=== PATIENT | female | born 1945 | race Caucasian/White ===

== ENCOUNTER → 2024-03-06 13:49 | Outpatient (REF) | payer OTHER, SELFPAY | LOC: HWRCS 13:49 | PROVIDERS: ATTENDING PHYSICIAN Internal Medicine Critical Care Medicine; FAMILY PHYSICIAN Nurse Practitioner Adult Health | DX: R06.02 Shortness of breath (principal) | CPT/HCPCS: 71046; 93306 ==

== ENCOUNTER 2024-05-01 20:26 | Emergency (ER) | payer OTHER, SELFPAY ==
[2024-05-01 20:34] VITALS: BP 146/77
[2024-05-01 21:00] LABS: % Basophils 0.4 % (0-2); % Eosinophils 1.9 % (0-6); % Immature Granulocytes 0.4 % (0-0.5); % Lymphocytes 4.2 % (20.5-51.1); % Monocytes 3.9 % (1.7-9.3); % Neutrophils 89.2 % (42.2-75.2); Absolute Eosinophils 0.2 10^3/uL (0-0.7); Absolute Immature Granulocytes 0.1 10^3/uL (0-0.05); Absolute Lymphocytes 0.5 10^3/uL (1.2-3.4); Absolute Monocytes 0.4 10^3/uL (0.1-0.6); Hematocrit 26.9 % (37.0-47.0); Hemoglobin 7.9 g/dL (12.0-16.0); Mean Corp Hgb Conc. 29.4 g/dL (33.0-37.0); Mean Corpuscular Hgb 20.7 pg (27.0-31.0); Mean Corpuscular Volume 70.4 fL (81.0-99.0); Nucleated Red Blood Cells % 0 %; Platelet Count 293 10^3/uL (130-400); Red Blood Cell Count 3.82 10^6/uL (4.20-5.40); Red Cell Dist. Width 16.9 % (11.5-14.5); White Blood Cell Count 11.3 10^3/uL (4.8-10.8)
[2024-05-01 21:14] LABS: ALT (SGPT) 29 U/L (0-35); AST (SGOT) 35 U/L (14-36); Albumin 4.2 g/dl (3.5-5.0); Alkaline Phosphatase 91 U/L (38-126); Blood Urea Nitrogen 24 mg/dl (7-17); Calcium 10.2 mg/dl (8.4-10.2); Carbon Dioxide 26 mmol/L (22-30); Chloride 99 mmol/L (98-107); Glucose 117 mg/dl (70-99); Potassium 4.2 mmol/L (3.5-5.1); Sodium 134 mmol/L (135-145); Total Bilirubin 0.9 mg/dl (0.2-1.3); Total Protein 6.7 g/dl (6.3-8.2); eGFR 57.31
[2024-05-01 21:17] VITALS: BP 161/50
[2024-05-01 21:18] LABS: COVID-19 Antigen Negative (Negative)
[2024-05-01 21:25] LABS: Troponin I < 0.012 ng/ml
[2024-05-01 22:00] VITALS: BP 162/46
[2024-05-01 22:01] VITALS: BMI 31.6
[2024-05-01] MEDS: DECADRON 10 MG IV (22:17)
[2024-05-01] MEDS: ZOFRAN 4 MG IV (22:17)
[2024-05-01] MEDS: DUONEB 3 ML INH (22:17)
[2024-05-01 23:00] VITALS: BP 165/53
--- NOTE | 2024-05-01 23:01 | ED.GENMED ---
History of Present Illness
General
Chief Complaint: Chest Pain
Source: patient
Exam Limitations: none
Time Seen by Provider: 05/01/24 21:14
Nursing documentation reviewed up to this point in time: agreed with
History of Present Illness
History of Present Illness:
78-year-old female presenting to the emergency department today with concerns of left-sided chest achiness and tightness over the past few days. Today felt somewhat better in the morning went to get an iron transfusion felt increased discomfort
this evening. He claims that she had a low-grade temperature as well. She had upper respiratory symptoms throughout the week earlier this week as well. She has had some mild shortness of breath as well. Denies nausea vomiting diarrhea.
Past History
Past History
ED Past Medical History: Asthma, GERD, HTN, Hypercholesterolemia and Other (Celiac, Vertigo)
ED Past Surgical History: Gynecological (Hysterectomy) and Other (Tooth Surgeries and extraction, Mess implant in the abd, Uretheral sling)
Social History
Tobacco: Non-smoker
Alcohol: None
Drug: None
Personal:
Living: alone
Employment: Retired
Family History
Family History: CAD
Review of Systems
Review of Systems
Allergies reviewed?: Yes
All Other Systems: ROS reviewed and negative except as documented in HPI and ROS
Phy Exam
Physical Exam
Physical Exam:
GENERAL: Alert , in no apparent distress
EYE: pupils equal and reactive
NECK: Supple, no significant adenopathy.
ENT: o/p clr, mmm.
CARDIAC: Regular rate and rhythm .
LUNGS: Diffuse expiratory wheezing otherwise good air movement
ABDOMEN: Soft, without focal tenderness, no r/g, no cvat
NEUROLOGICAL: Alert and oriented, no focal neuro deficits
SKIN: Warm and dry, skin intact.
MUSCULOSKELETAL: No edema, well perfused.
PSYCH: Normal and appropriate interaction.
Scores
Heart Score for Chest Pain Patients
STEMI patient?: No
History: Slightly or Non-Suspicious
ECG: Normal
Age: >/= 65 years
Risk Factors: 1 or 2 Risk Factors
Troponin: </= Normal Limit
Heart Score for Chest Pain Patients: 3
Heart Score Risk: 2.5% MACE over next 6 weeks
Course
Orders/Labs/Results
Orders:
Orders
05/01/24 20:28
ECG [Electrocardiogram (*1)] Urgent
Reason for Study: Chest Pain
EKG- Treatment ONCE
05/01/24 20:40
COVID-19 Antigen Urgent
Source: Nasal Swab
Influenza A+B Rapid Molecular Urgent
[place] Source: Nasal Swab
Specimen Description:
05/01/24 20:43
Complete Blood Count/With Diff Urgent
Comprehensive Metabolic Panel Urgent
Troponin I Urgent
05/01/24 21:15
Chest [CR Chest - 2 Views ] Urgent
Comment:
Reason For Exam: cp
05/01/24 22:04
Dexamethasone Sod Phosphate [Decadron] 10 mg IV NOW STA
Ipratropium/Albuterol Sulfate [Duoneb] 3 ml INH R NOW ONE
Ondansetron Injectable [Zofran] 4 mg IV NOW STA
05/01/24 22:19
Ondansetron Injectable [Zofran] 4 mg .ROUTE .STK-MED ONE
Abnormal Lab Results
05/01/24
20:43
WBC 11.3 H 10^3/uL
(4.8-10.8)
RBC 3.82 L 10^6/uL
(4.20-5.40)
Hgb 7.9 L g/dL
(12.0-16.0)
Hct 26.9 L %
(37.0-47.0)
MCV 70.4 L fL
(81.0-99.0)
MCH 20.7 L pg
(27.0-31.0)
MCHC 29.4 L g/dL
(33.0-37.0)
RDW 16.9 H %
(11.5-14.5)
Abs Immat Gran (auto) 0.1 H 10^3/uL
(0-0.05)
Absolute Neuts (auto) 10.0 H 10^3/uL
(1.4-6.5)
Absolute Lymphs (auto) 0.5 L 10^3/uL
(1.2-3.4)
Neutrophils % 89.2 H %
(42.2-75.2)
Lymphocytes % 4.2 L %
(20.5-51.1)
Sodium 134 L mmol/L
(135-145)
BUN 24 H mg/dl
(7-17)
Glucose 117 H mg/dl
(70-99)
05/01/24 20:43
05/01/24 20:43
Vital Signs
Initial and Last Documented VS:
Initial Vital Signs
Temp Pulse Resp BP Pulse Ox
98.4 F 84 16 146/77 99
05/01/24 20:34 05/01/24 20:34 05/01/24 20:34 05/01/24 20:34 05/01/24 20:34
Last Documented Vital Signs
Temp Pulse Resp BP Pulse Ox
98.4 F 70 14 161/50 94
05/01/24 20:34 05/01/24 22:00 05/01/24 22:00 05/01/24 21:17 05/01/24 22:00
MDM/Problems Addressed
MDM/Problems Addressed:
78-year-old female presenting to the emergency department today with concerns of chest tightness mainly to the left chest has had upper respiratory symptoms throughout the week. On arrival here vital signs are normal afebrile hemoglobin 7.9 which
is patient's baseline currently receiving iron transfusions for this. Slight white count of 11.3. Otherwise labs unremarkable EKG without emergent findings chest x-ray normal troponin negative cardiac etiology seems unlikely with patient's
description patient has had multiple days of symptoms with negative troponin level. On examination patient does have expiratory wheezing diffusely consistent with likely reactive airway syndrome. She does have a history of asthma. She was given
nebulizer treatment as well as steroid. Patient with significant improvement of symptoms after receiving nebulizer and steroid. Patient was ambulated in the room with pulse ox in the mid to high 90s she appeared well she was requesting to go home
at this point as she is feeling better. She was advised for close outpatient follow-up and otherwise symptoms may be consistent with reactive airway was treated with this accordingly with steroid and nebulizer treatments. Otherwise was advised for
close outpatient follow-up return precautions given.
*Critical Care Note
Total Time (30-74mins, 75-104mins- exclusive of procedures): Not Applicable
ED Attending Note
-
Portions of this chart may have been created with voice recognition software.� Occasional wrong word or��sound alike� substitutions may have occurred due to the inherent limitations of voice recognition software.
Discharge Plan
Departure
Patient Disposition: Home (Routine Discharge)
Date of Disposition: 05/01/24
Time of Disposition: 23:20
Patient with high blood pressure during this ER visit?: No
Condition: Good
Covid-19: Not Applicable
Discharge Problem:
Chest pain, Asthma exacerbation
Instructions: Chest Pain DCA Follow Up
Prescriptions:
New
prednisone 20 mg tablet
40 mg PO DAILY 3 Days Qty: 6 0RF
Rx Instructions:
Started this medication in 48 hours
No Action
albuterol sulfate [Ventolin HFA] 90 MCG/PUFF HFA aerosol inhaler
2 puff inhalation PRN PRN (Reason: sob)
cholecalciferol (vitamin D3) 2,000 UNIT tablet
2,000 unit PO DAILY
Advair HFA 1 PUFF HFA aerosol inhaler
2 puff inhalation R BID
ondansetron 4 MG tablet,disintegrating
4 mg PO TIDPRN PRN (Reason: Nausea) Qty: 15 0RF
albuterol sulfate 2.5 MG/3 ML solution for nebulization
2.5 mg inhalation R Q4HPRN PRN (Reason: sob)
atorvastatin 40 MG tablet
40 mg PO QPM Qty: 30 0RF
aspirin 81 MG tablet,chewable
81 mg PO DAILY 0RF
sucralfate [Carafate] 1 gram Tablet
1 g PO PRN PRN (Reason: acid reflux)
cyanocobalamin (vitamin B-12) 1,000 mcg Tablet
1,000 mcg PO DAILY
triamcinolone acetonide [Nasacort] 55 mcg Aerosol,[place]
2 spray INTRANASAL DAILY
metoprolol tartrate [Lopressor] 50 mg Tablet
50 mg PO BID
omeprazole 20 mg Capsule,Delayed Release(Dr/Ec)
20 mg PO DAILY
meclizine 12.5 mg Tablet
12.5 mg PO Q8HPRN PRN (Reason: dizziness) Qty: 30 0RF
losartan 25 mg Tablet
25 mg PO BID Qty: 60 0RF
Referrals:
Mary Kate Dueñas CRNP [Family Provider] -
Activity Restrictions/Additional Instructions:
You came to the emergency department today with concerns of chest discomfort and upper respiratory symptoms. Here you had a wheeze. You were treated with steroid and inhaler that seem to improve symptoms. Please continue the steroid over the next
4 days. Otherwise your cardiac workup was reassuring. Please follow closely with cardiology otherwise. Return for any worsening or progressive symptoms
Interventions
Interventions:
*Risk Screen - Suicide Last Done: 05/01/24 20:34
*General Assessment Last Done: 05/01/24 20:34
*Neglect/Abuse Screening Last Done: 05/01/24 20:34
ED- Fall Risk Assessment Last Done: 05/01/24 22:01
*ED COVID-19 Vaccine History Last Done: 05/01/24 20:34
ED- Cardiac Assessment Last Done: 05/01/24 22:02
Discharge Date and Time
Print Language: FIJIAN
[2024-05-01] MEDS: TYLENOL 1000 MG PO (23:27)
== END 2024-05-01 23:36 | disposition home or self-care (01) ==
LOC: EMR 20:26
PROVIDERS: EMERGENCY PHYSICIAN Student in an Organized Health Care Education/Training Program; FAMILY PHYSICIAN Nurse Practitioner Adult Health
DX: J45.901 Unspecified asthma with (acute) exacerbation (principal); R07.89 Other chest pain; E78.00 Pure hypercholesterolemia, unspecified; I10 Essential (primary) hypertension; K21.9 Gastro-esophageal reflux disease without esophagitis
CPT/HCPCS: 99285; 96374; 96375; 94640; 71046; 80053; 84484; 85025; 87502; 87811; 93005

== ENCOUNTER 2025-01-02 23:49 | Inpatient (IN) | payer OTHER, SELFPAY ==
[2025-01-02] VITALS (11 sets, daily range): BP systolic 189–244; BP diastolic 64–106
[2025-01-02 21:35] LABS: Hematocrit 39.2 % (37.0-47.0); Hemoglobin 13.6 g/dL (12.0-16.0); Mean Corp Hgb Conc. 34.7 g/dL (33.0-37.0); Mean Corpuscular Volume 89.3 fL (81.0-99.0); Nucleated Red Blood Cells % 0 %; Platelet Count 300 10^3/uL (130-400); Red Cell Dist. Width 12.8 % (11.5-14.5)
[2025-01-02 21:50] LABS: ALT (SGPT) 25 U/L (0-35); AST (SGOT) 27 U/L (14-36); Albumin 4.1 g/dl (3.5-5.0); Alkaline Phosphatase 88 U/L (38-126); Blood Urea Nitrogen 17 mg/dl (7-17); Calcium 9.9 mg/dl (8.4-10.2); Carbon Dioxide 29 mmol/L (22-30); Chloride 106 mmol/L (98-107); Glucose 104 mg/dl (70-99); Potassium 4.4 mmol/L (3.5-5.1); Sodium 140 mmol/L (135-145); Total Protein 6.8 g/dl (6.3-8.2); eGFR 50.80
[2025-01-02 21:55] LABS: Troponin I < 0.012 ng/ml
[2025-01-02] MEDS: BENADRYL 25 MG IV (22:08)
[2025-01-02] MEDS: COMPAZINE 10 MG IV (22:08)
[2025-01-02] MEDS: LOPRESSOR 50 MG PO (22:08)
--- NOTE | 2025-01-02 22:27 | ED.CVA ---
History of Present Illness
General
Chief Complaint: Headache
Source: patient and family (son)
Exam Limitations: none
Time Seen by Provider: 01/02/25 21:15
Nursing documentation reviewed up to this point in time: agreed with
Onset of Stroke Symptoms
Onset of symptoms known: No
Time pt last seen normal is known: No
History of Present Illness
History of Present Illness:
The patient is an 79-year-old female with a past medical history of high blood pressure complains of gradual onset of left-sided headache that started today. Patient describes it as fairly severe and pounding. Patient reports that she has had a
history of atypical migraines with visual disturbances but has never actually had pain in her head before. Patient reports that earlier she had visual distortions of ' broken glass' in both of her eyes, which is her typical migraine aura. This
visual disturbance is now gone completely but she still has the pain along the left side of her head. Patient has associated nausea and vomiting. She denies fever and rash. She denies sore throat. She denies chest pain or shortness of breath.
Patient reports that she does take her blood pressure medication
Past History
Past History
ED Past Medical History: Asthma, GERD, HTN, Hypercholesterolemia and Other (Celiac, Vertigo)
ED Past Surgical History: Gynecological (Hysterectomy) and Other (Tooth Surgeries and extraction, Mess implant in the abd, Uretheral sling)
Social History
Tobacco: Non-smoker
Alcohol: None
Drug: None
Personal:
Living: alone
Employment: Retired
Family History
Family History: CAD
Review of Systems
Review of Systems
Allergies reviewed?: Yes
All Other Systems: ROS reviewed and negative except as documented in HPI and ROS
Constitutional: Reports no symptoms
EENT: Reports other (Visual disturbances)
Respiratory: Reports no symptoms
Cardiac: Reports no symptoms
ABD/GI: Reports nausea and vomiting
: Reports no symptoms
Musculoskeletal: Reports no symptoms
Skin: Reports no symptoms
Neurological: Reports headache
Endocrine: Reports no symptoms
Hematologic/Lymphatic: Reports no symptoms
Psychiatric: Reports no symptoms
Phy Exam
Physical Exam
Physical Exam:
Physical Exam
General: no apparent distress, not acutely ill
Neck: supple. no meningeal signs. normal psoterior pharynx
Heart: s1/s2 regular rate and rhythm, no murmur. equal radial pulses.
Lungs: no acute respiratory distress. clear bilaterally
Abdomen: normal bowel sounds. not tender. no CVAT
Neuro: alert and orientedx3. no focal neurological deficits. Normal finger-nose. Extraocular muscles intact. 5 out of 5 strength in all extremities without drift. Patient having difficulty with memory she states is new
for her.
Skin: no rash
Psychiatric: well kept. interactive and cooperative
Extremities: no edema. no calf tenderness. negative homans. good distal pulses
Course
Orders/Labs/Results
Orders:
Orders
01/02/25 20:45
Electrocardiogram (*1) Urgent
Reason for Study: Fatigue / Weakness
EKG- Treatment ONCE
01/02/25 21:14
CT Head W/o Iv Contrast Urgent
Comment:
Reason For Exam: high BP, headache
01/02/25 21:21
Complete Blood Count/With Diff Urgent
Comprehensive Metabolic Panel Urgent
Erythrocyte Sed Rate Urgent
Comment: ADD ON
Troponin I Urgent
01/02/25 21:59
Diphenhydramine [Benadryl] 25 mg IV NOW STA
Metoprolol [Lopressor] 50 mg PO NOW STA
Prochlorperazine [Compazine] 10 mg IV NOW STA
01/02/25 22:00
Add On- LAB Urgent
Tests Added?: ESR
01/02/25 23:11
Ketorolac [Toradol] 15 mg IV NOW STA
01/02/25 23:20
Labetalol HCl [Trandate] 10 mg IV NOW STA
01/02/25 23:30
Nicardipine 40 mg/200 ml [Cardene] 40 mg in 200 ml IV PER PROTOCOL
Initial dose in mg/hr, then titrate:: 5
Titrate to keep:: SBP 120 - 140 mmHg
Titrate by mg/hr:: 2.5 mg/hr
Frequency of titrations (minutes):: 5-15 minutes
Maximum dose in mg/hr:: 15
Begin to taper infusion when:: Remained at goal for 2hrs
Taper by mg/hr:: 2.5 mg/hr
Frequency of taper (minutes) if patient maintains goal:: every 15-30 minutes
Taper to off?: Yes
If infusion off & no longer maintaining goal:: Contact Provider
01/02/25 23:39
Admit/Transfer Patient As Directed
Co-Sign Provider:
Level of Care: Inpatient admission
Assign to:: IMU- Intermediate Care
Physician / Group: abdoulaye daniel
Diagnosis: HTN emergency
Reason for Hospitalization: HTN emergency
Expected length of stay greater than two midnights?: Yes
ELOS- Estimated Length of Stay in days: 3
I certify the patient meets the requirements for IP care: Yes
PRN Pain Medication Management As Directed
May give lesser potent ordered pain med per pt: Yes
preference::
Protocol:: Medication orders for pain may be administered in a
manner that supports deferring to patient preference
when the pt is:
- Requesting an ordered lesser potent pain medication.
Least to most potent pain medications are defined
as: acetaminophen < NSAID < tramadol < opioids
(morphine, oxycodone, hydromorphone).
- Requesting a lesser dose of the same medication IF
ORDERED.
- Requesting a less intrusive route of administration
if both routes are prescribed by the provider (PO <
IV).
01/02/25 23:40
Code Status As Directed
Resuscitation Status: Full Code
01/02/25 23:46
Losartan [Cozaar] 25 mg PO NOW STA
01/03/25 01:31
Acetaminophen [Tylenol] 650 mg PO Q4HPRN PRN
Bisacodyl [Dulcolax] 10 mg RECTAL [id number] PRN
Docusate W/Senna [Senokot-S] 1 tablet PO BIDPRN PRN
Labetalol HCl [Trandate] 10 mg IV Q6HPRN PRN
Polyethylene Glycol Powder [Miralax] 17 grams PO DAILYPRN PRN
Prochlorperazine [Compazine] 10 mg IV Q6HPRN PRN
01/03/25 01:31
Consult Notification Routine
Specialty to Notify: Nephrology
Date consulting provider notified: 01/03/25
Time consulting provider notified: 08:20
Notified:: Provider
Consult Notification Routine
Specialty to Notify: Neurology
Date consulting provider notified: 01/03/25
Time consulting provider notified: 08:20
Notified:: Provider
NEPHROLOGY CONSULT Routine
Consulting Provider: Moe Mantilla
Was physician already notified: No
Reason for consult: HTN emergency
NEUROLOGY CONSULT Routine
Consulting Provider: Glenny Salcedo
Was physician already notified: No
Reason for consult: CARMONA
Activity As Directed
Activity Level: As Tolerated
Pneumatic Compression Sleeves As Directed
Type: Knee high
Vital Signs As Directed
Frequency: Per unit guidelines
DX Deep Vein Thrombosis Video Routine
01/03/25 Breakfast
Cholesterol Lowering
At Your Request: Full Participation
Does patient need a safe tray?: No
Cholesterol Lowering: Sodium, 2 Gram
01/03/25 06:05
Basic Metabolic Panel IN AM
Cardiovascular Evaluation IN AM
Complete Blood Count/No Diff IN AM
01/03/25 08:00
Aspirin Chewable [Low Strength Aspirin] 81 mg PO DAILY
Losartan [Cozaar] 25 mg PO DAILY
Metoprolol [Lopressor] 75 mg PO BID
01/03/25 18:00
Atorvastatin [Lipitor] 40 mg PO QPM
Abnormal Lab Results
01/02/25
21:21
MPV 10.9 H fL
(7.4-10.4)
Absolute Neuts (auto) 8.0 H 10^3/uL
(1.4-6.5)
Absolute Monos (auto) 0.7 H 10^3/uL
(0.1-0.6)
Lymphocytes % 14.7 L %
(20.5-51.1)
Creatinine 1.1 H mg/dL
(0.6-1.0)
Glucose 104 H mg/dl
(70-99)
01/02/25 21:21
01/02/25 21:21
Vital Signs
Initial and Last Documented VS:
Initial Vital Signs
Temp Pulse Resp BP Pulse Ox
98.7 F 80 20 229/106 97
01/02/25 20:39 01/02/25 20:39 01/02/25 20:39 01/02/25 20:39 01/02/25 20:39
Last Documented Vital Signs
Temp Pulse Resp BP Pulse Ox
97.6 F 69 17 114/56 96
01/05/25 12:00 01/05/25 14:13 01/05/25 09:00 01/05/25 14:13 01/05/25 11:50
MDM/Problems Addressed
Differential Diagnosis Includes:
Hypertensive urgency, hypertensive emergency, acute migraine headache
MDM/Problems Addressed:
Patient presents with acute headache and memory problems
Acute Exacerbation and/or Progression of Chronic Illness:
Patient's blood pressure is acutely elevated.
Acute Exacerbation and/or Progression of Chronic Illness: HTN
*Radiology
Radiology exam reviewed: radiology read reviewed
*Pulse Oximetry
SaO2: 98
Oxygen Mode of Delivery: Room air
Patient hypoxic: no
*EKG
Interpreted by ED Provider?: Yes
Interpretation: normal
Comparison EKG: no comparison EKG present
Rate: normal
Rhythm: sinus
[place]: normal axis
Interval: normal interval
QRS Pattern: right bundle branch block
Ischemia: no ischemia
*Nonprofit Manager Interpretation
Rate: normal
Interpretation: normal
Rhythm: sinus
*Critical Care Note
Total Time (30-74mins, 75-104mins- exclusive of procedures): Not Applicable
Data Reviewed
Review of Other/Old Records Reveals: Discharge Summary (Patient admitted for hypertensive emergency in 2021)
Source: patient
Patient Management
Discussion with other providers: Hospitalist
Update Note
Update Note:
Patient given Compazine and Benadryl for headache with little improvement of headache. However, patient still appears nontoxic and there is no meningitis. Patient given her oral metoprolol and still very hypertensive.
ED Attending Note
-
Portions of this chart may have been created with voice recognition software.� Occasional wrong word or��sound alike� substitutions may have occurred due to the inherent limitations of voice recognition software.
Discharge Plan
Departure
Patient Disposition: Admit
Date of Disposition: 01/02/25
Time of Disposition: 23:12
Admit to: Telemetry
Presentation/result/management discussed w/ accepting MD/DO: Hospitalist
Condition: Good
Covid-19: Not Applicable
Discharge Problem:
Hypertension, uncontrolled, Acute headache
Interventions
Interventions:
*Risk Screen - Suicide Last Done: 01/02/25 21:37
*General Assessment Last Done: 01/02/25 20:42
*Neglect/Abuse Screening Last Done: 01/02/25 21:37
*ED COVID-19 Vaccine History Last Done: 01/03/25 01:34
*ED Influenza Vaccine History Last Done: 01/02/25 20:42
*Nursing Disposition Last Done: 01/03/25 01:07
ED- Neurological Assessment Last Done: 01/02/25 21:33
Discharge Date and Time
Discharge Date/Time: 01/03/25 01:35
--- NOTE | 2025-01-02 23:15 | HPS.HSE ---
Family Physician
-
Family Physician: Mary Kate Dueñas
Chief Complaint
-
headache, confusion
History of Present Illness
79-year-old with past medical history for asthma, GERD, hypertension, hyperlipidemia, anemia, vertigo presented to us with left sided headache. she was not able to remember her kids name as she was looking through her phone to call them. she as
nauseous. she was confused. denied any focal weakness. she had an episode of diarrhea. denied fever, chills, cough, congestion,chest pain, sob. denied abdominal pain, denied dysuria or hematuria.
Upon arrival she was hypertensive. Systolic in 200s. Patient received Benadryl, Toradol, labetalol, metoprolol in ER. Admitting for further management
Medical History
Past Medical History
Past Medical History: Reports Other
Additional Past Medical History:
Asthma, GERD, hypertension, hypercholesteremia, CVA, vertigo, depression, basal cell carcinoma, tooth abscess, celiac disease headaches chronic sinusitis, hiatal hernia, anemia, ocular migraines, peripheral neuropathy, herpes zoster
Past Surgical History: Reports Other
Additional Past Surgical History:
Hysterectomy, tooth extraction, urethral sling, left knee repair, umbilical hernia repair meniscus repair abdominal mesh repair
Social History
Tobacco: Non-smoker
Alcohol: None
Drug: None
Personal: Single
Living: Alone
Family History
Family History: Not pertinent
Allergies / Home Medications
Allergies reflects when Allergies were last updated in [facility].
Home Medications with original date entered in [facility]
Allergy/Medication List:
Allergies
Allergy/AdvReac Type Severity Reaction Status Date / Time
amlodipine Allergy pounding Verified 01/02/25 20:44
heart
ampicillin Allergy Rash Verified 01/02/25 20:44
cat dander Allergy sneezing,coughing, Verified 01/02/25 20:44
asthma
codeine Allergy Vomiting Verified 01/02/25 20:44
diltiazem Allergy pt reports Verified 01/02/25 20:44
pounding
heart
latex Allergy Swelling Verified 01/02/25 20:44
pollen extracts Allergy SOB, Verified 01/02/25 20:44
coughing,
sneezing,
asthma
Home Medications
albuterol sulfate 90 mcg/actuation aerosol inhaler (Ventolin HFA) 2 puff inhalation PRN PRN sob 06/01/14
cholecalciferol (vitamin D3) 50 mcg (2,000 unit) tablet 2,000 unit PO DAILY Supplement 10/01/19
fluticasone propionate 230 mcg-salmeterol 21 mcg/actuation HFA inhaler (Advair HFA) 2 puff inhalation R BID Lung/breathing issues 10/02/19
ondansetron 4 mg disintegrating tablet 4 mg PO TIDPRN PRN Nausea #15 tabs 10/06/19
albuterol sulfate 2.5 mg/3 mL (0.083 %) solution for nebulization 2.5 mg inhalation R Q4HPRN PRN sob 07/10/20
aspirin 81 mg chewable tablet 81 mg PO DAILY 07/12/20
atorvastatin 40 mg tablet 40 mg PO QPM #30 tabs 07/12/20
cyanocobalamin (vitamin B-12) 1,000 mcg tablet 1,000 mcg PO DAILY 10/13/21
metoprolol tartrate 50 mg tablet (Lopressor) 50 mg PO BID 10/13/21
omeprazole 20 mg capsule,delayed release 20 mg PO DAILY 10/13/21
sucralfate 1 gram tablet (Carafate) 1 g PO PRN PRN acid reflux 10/13/21
triamcinolone acetonide 55 mcg nasal spray aerosol (Nasacort) 2 spray intranasal DAILY 10/13/21
losartan 25 mg tablet 25 mg PO BID #60 tabs 10/15/21
meclizine 12.5 mg tablet 12.5 mg PO Q8HPRN PRN dizziness #30 tabs 10/15/21
prednisone 20 mg tablet 40 mg (2 x 20 mg) PO DAILY 3 days #6 tabs 05/01/24
Review of Systems
-
Constitutional: Reports No Symptoms
EENT: Reports No Symptoms
Respiratory: Reports No Symptoms
Cardiac: Reports No Symptoms
Abdomen/GI: Reports No Symptoms
: Reports No Symptoms
Musculoskeletal: Reports No Symptoms
Skin: Reports No Symptoms
Neurological: Reports Headache
Endocrine: Reports No Symptoms
Hematologic/Lymphatic: Reports No Symptoms
Psych: Reports No Symptoms
Physical Exam
Vital Signs
Vital Signs
Temp Pulse Resp BP Pulse Ox
98.7 F 73 17 214/90 94
01/02/25 20:39 01/02/25 22:30 01/02/25 22:30 01/02/25 22:30 01/02/25 22:30
Physical Exam
General: Well Developed, Well Nourished and No Apparent Distress
HEENT: NormoCephalic, Moist mucous membranes and Atraumatic
Respiratory: Clear
Cardiac: S1/S2 and Regular Rhythm; No Murmur or Rub
GI: Soft, Non Tender, Non Distended and Normal Bowel Sounds; No Organomegaly
Rectal: Deferred by Provider
Musculoskeletal: No Clubbing, No Cyanosis and No Edema
Skin: No Rash
Neuro: AO x 3 and Nonfocal/grossly intact
Psych: Calm
Laboratory Results
-
01/02/25 21:21
01/02/25 21:21
Laboratory Results
Total Bilirubin 0.4 mg/dl (0.2-1.3) 01/02/25 21:21
AST 27 U/L (14-36) 01/02/25 21:21
ALT 25 U/L (0-35) 01/02/25 21:21
Alkaline Phosphatase 88 U/L (38-126) 01/02/25 21:21
Troponin I < 0.012 ng/ml 01/02/25 21:21
Data Reviewed
-
CT Scan: Report Reviewed by me
Lab Data: Labs Reviewed by me
Impression/Plan
-
# Hypertension urgency/headache
- Systolic BP in 200, diastolic in 90s
- Head CT with no acute intracranial abnormality
- Nephrology consulted
- Metoprolol continue
- IV labetalol as needed
- Compazine as needed
- Nephrology consulted
-neurology consulted
-Tylenol prn for apin
-losartan added
# Acute kidney injury
- Creatinine 1.1
- Continue to monitor
#Hyperlipidemia
-Continue Lipitor
#GERD
-Continue Protonix
# DVT prophylax
- Heparin subcu
# CODE STATUS
- Full code
[2025-01-02] MEDS: TRANDATE 10 MG IV (23:34)
[2025-01-02] MEDS: TORADOL 15 MG IV (23:35)
--- NOTE | 2025-01-02 23:35 | W.PN.UPDATE ---
Update Note
Progress Note Update
This note serves as an addendum to the H&P by insurance service representative CARLOS�
Nette DAVID�
HPI
76F HX left occipital stroke in June 2020, chronic headaches with migrainous quality and occasional visual aura, hypertension, hyperlipidemia, asthma, previous BPP
- gradual onset of left-sided headache that started today.
- fairly severe and pounding.
- HX atypical migraines with visual disturbances but has never actually had pain in her head before.
- reports that earlier she had visual distortions of ' broken glass' in both of her eyes, which is her typical migraine aura.
- visual disturbance is now gone completely but she still has the pain along the left side of her head. Patient has associated nausea and vomiting. She denies fever and rash. She denies sore throat.
ROS
denies chest pain or shortness of breath. Patient reports that she does take her blood pressure medication
Relevant VS
Temp Pulse Resp BP Pulse Ox
98.7 F 65 17 219/71 94
01/02/25 20:39 01/02/25 23:34 01/02/25 22:30 01/02/25 23:34 01/02/25 22:30
PE
Gen : no distress
HEENT: Atraumatic normocephalic eyes are anicteric with no obvious abnormality oropharynx is clear
Derm: Skin is warm and dry no rash no suspicious lesions
CV: RRR
Pulmonary: Clear to auscultation bilaterally breathing is unlabored
Abdomen: Soft nontender no guarding rigidity
Extremity: No edema
Relevant Data
07/10/20 10/13/21 10/13/21
19:43 15:11 17:10
Creatinine 0.9 1.1 H
Glomerular Filtr Rate > 60.0 48.2
Troponin I < 0.012
Last hospitalist admission: 10/13/2021 - 10/15/2021
FINAL DIAGNOSES:
1. Hypertensive emergency.
2. Vertigo due to hypertensive emergency.
ASSESSMENT & PLAN
Hypertensive Emergency - Previous secondary hypertensive workup had been done and was negative
Mild JUAN
Multi drug intolerance of long-standing duration which has included hydralazine, amlodipine, diltiazem, lisinopril)
HX Neurologic impairment/dizziness potentially secondary to hypertensive emergency
CARMONA Migraine or due to HTN emerghency
Hyperlipidemia
GERD
Allergic to Codine
-Per Prior Renal consult from last admission
-Initiate losartan 25 mg daily -If losartan cannot adequately controlled blood pressure, to add low-dose hydrochlorothiazide
-Beta duke titration will be limited by bradycardia
- Tylenol PRN for CARMONA
- Trend BMP
- Renal consult
DVT Px: SCD
Full code
IMU
[2025-01-03] VITALS (50 sets, daily range): BP systolic 113–212; BP diastolic 53–111; BMI 28.6
[2025-01-03] MEDS: COZAAR 25 MG PO ×2 (00:12→08:15)
[2025-01-03] MEDS: TYLENOL 650 MG PO ×4 (01:54→18:50)
[2025-01-03] MEDS: TRANDATE 10 MG IV ×2 (01:55→10:02)
[2025-01-03] MEDS: COMPAZINE 10 MG IV ×2 (01:56→08:14)
--- NOTE | 2025-01-03 02:00 | PTCARENOTE ---
Received pt. from ED. Pt. awake, alert, oriented. Denies pain/discomfort. Afebrile. Heart rhythm sinus. Hypertensive. PRN anti-hypertensive given, see MAR. Currently on room air. Lungs sound clear. PO diet ordered. Pt. currently experiencing nausea.
PRN compazine given, see MAY. Pt. voiding without issue. Skin as documented. Discussed plan of care. Pt. is stable at this time.
--- NOTE | 2025-01-03 05:00 | PTCARENOTE ---
Pt. blood pressure improved with PRN medication. SBP currently 140s to 160s. Will draw AM labs. Pt. is stable at this time.
[2025-01-03 06:18] LABS: Hematocrit 35.2 % (37.0-47.0); Hemoglobin 12.0 g/dL (12.0-16.0); Mean Corp Hgb Conc. 34.1 g/dL (33.0-37.0); Mean Corpuscular Volume 87.8 fL (81.0-99.0); Platelet Count 277 10^3/uL (130-400); Red Cell Dist. Width 12.7 % (11.5-14.5)
[2025-01-03 06:36] LABS: Blood Urea Nitrogen 19 mg/dl (7-17); Calcium 9.5 mg/dl (8.4-10.2); Carbon Dioxide 24 mmol/L (22-30); Chloride 106 mmol/L (98-107); Estimated Creatinine Clearance 50 ml/min; Glucose 112 mg/dl (70-99); HDL Cholesterol 42 mg/dl; LDL Cholesterol, Calculated 68 mg/dl; Potassium 4.6 mmol/L (3.5-5.1); Sodium 135 mmol/L (135-145); Very Low Density Lipoprotein 40 mg/dl (0-30); eGFR > 60.00
--- NOTE | 2025-01-03 07:21 | CON.NEURO ---
Consultation
Order
Date of Consultation: 01/03/25
Requesting Provider: Nette Ramos CRNP
Reason for Consult: Headache
Neurology Consultation Note.
HPI: This is an 79-year-old woman who presented to [facility] on 01/02/2025 with headache.
According to the patient she developed gradual onset progressive severe left-sided headache that began yesterday afternoon. Her symptoms were preceded by visual obscurations and form of 'cracked glass type of vision' where objects would disappear
when she looked directly at them but could be seen peripherally. However, unlike her usual 'ocular migraines 'which are painless, this episode was accompanied by severe sharp pain on the left side of her head and face that was so intense she could
not touch that side of her face. There was associated photophobia, some nasal congestion and nausea. Ms. Huff reports having off-and-on L temporal pain in the past but never as severe as yesterday's episode. She took aspirin for the pain without
relief, which prompted her to seek medical attention. Currently, her headache persists but has improved significantly from yesterday, rating it as a 3/10 in severity. sincere baby aspirin and reports having peripheral neuropathy of undetermined cause,
noting she does not have diabetes.
ER VS: 229/106-244/87, 80, afebrile
EKG:NSR, QTcB Int : 416 ms
PDMP: none
Labs: Glucose�112, normal WBCs, creatinine�1.1, LDL�68
CT head wo contrast�no acute abnormalities, moderate atrophy
PMH: Ocular migraine, L [employer]ICE MAIL [employer] stroke(2020), HTN, DLP, GERD, chronic sinusitis, migraine with aura, polyneuropathy, history of hyper zoster, BPPV, vitamin D, B12 deficiency
PSH: umbilical hernia repair, hysterectomy, left knee arthroscopy
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
FH: Noncontributory to current presentation
All: Hydralazine, amlodipine, ampicillin, codeine, diltiazem, NARESH inhibitors
ROS:HEENT: Positive for voice changes. Negative for rhinorrhea currently.
Gastrointestinal: Positive for nausea with headache episode.
Musculoskeletal: Positive for chronic back pain and neck pain. Negative for sciatica symptoms.
Neurological: Positive for tingling and numbness in feet, occasional visual disturbances with crackling vision.
General: Well developed. In no acute distress.
Cardio: Regular rate and rhythm without murmur. Extremities are without cyanosis or edema.
Neuro:
Mental Status: Alert, oriented to person, place, and date. Normal attention and recall. Good fund of knowledge. Follows complex requests across the midline. Comprehension, naming, and repetition intact. Immediate and delayed recall 3/3.
Cranial Nerves: Pupils are equally round and reactive to light. EOMs full. Visual champagne full to confrontation. No ptosis. No nystagmus. V1-V3 intact to light touch and pinprick bilaterally, symmetric. Face symmetric. Normal hearing AU. The
palate elevated well. SCMs and traps 5/5. Tongue midline. No dysarthria. Moderate dysphonia (after RSV several months ago)
Motor: Normal bulk and tone. No pronator or arm drift. Strength 5/5 throughout. No clonus.
Reflexes: Negative grasp bilaterally
Sensory: Absent vibration at the toes and ankles
Coordination: No dysmetria or tremor.
Gait: deferred
Bilateral hammertoes
Assessment and Plan:
I. Hypertensive emergency
II. History of left OFFICE MAIL [employer] stroke (2020) of unclear etiology
III. Migraine with aura
IV. Distal symmetric large fiber polyneuropathy
-Continue Telemetry monitoring
-Please check ESR, CRP, TFTs, magnesium
-Brain MRI wo kathryn
-IV Toradol 30 mg, Reglan 10 mg, Benadryl 25 mg Q8h PRN for moderate to severe headache.
-Continue ASA 81 mg QD
-PT.
-DVT prophylaxis.
I personally reviewed all radiology and labs along with past medical records pertinent to current medical problems. Total time spent in patient care is 60 minutes.
Thank you for allowing us to participate in the care of this patient. We will continue to follow. Please do not hesitate to contact us with any questions or concerns.
Subjective/Objective
Subjective Data
Date of Service: January 03, 2025
Objective Data
Vital Signs
Temp Pulse Resp BP Pulse Ox
37.1 C 59 17 147/58 93
01/03/25 07:03 01/03/25 06:30 01/03/25 06:30 01/03/25 06:00 01/03/25 06:30
Lab Results
01/03/25 06:05
01/03/25 06:05
Sodium 135 mmol/L (135-145) 01/03/25 06:05
Potassium 4.6 mmol/L (3.5-5.1) 01/03/25 06:05
BUN 19 mg/dl (7-17) H 01/03/25 06:05
Glucose 112 mg/dl (70-99) H 01/03/25 06:05
Calcium 9.5 mg/dl (8.4-10.2) 01/03/25 06:05
LDL Cholesterol, Calc 68 mg/dl 01/03/25 06:05
Patient Allergies
amlodipine Allergy (Verified 01/02/25 20:44)
pounding heart
ampicillin Allergy (Verified 01/02/25 20:44)
Rash
cat dander Allergy (Verified 01/02/25 20:44)
sneezing,coughing, asthma
codeine Allergy (Verified 01/02/25 20:44)
Vomiting
diltiazem Allergy (Verified 01/02/25 20:44)
pt reports pounding heart
latex Allergy (Verified 01/02/25 20:44)
Swelling
pollen extracts Allergy (Verified 01/02/25 20:44)
SOB, coughing, sneezing, asthma
NARESH Inhibitors Adverse Reaction (Intermediate, Verified 01/03/25 03:39)
cough
hydralazine Adverse Reaction (Intermediate, Verified 01/03/25 03:39)
per records-pounding heart,CARMONA, stuffy head
Medications
-
Active Medications
Generic Name Dose Route Start Last Admin
Trade Name Freq PRN Reason Stop Dose Admin
Acetaminophen 650 mg 01/03/25 01:31 01/03/25 01:54
Acetaminophen 325 Mg Tablet PO 01/31/25 01:30 650 mg
Q4HPRN PRN Administration
mild pain/CARMONA/temp> 100.4F
Aspirin 81 mg 01/03/25 08:00
Aspirin 81 Mg Chewable Tablet PO 01/31/25 07:59
DAILY KAILA
Atorvastatin Calcium 40 mg 01/03/25 18:00
Atorvastatin (Lipitor) 40 Mg Tablet PO 01/31/25 17:59
QPM KAILA
Bisacodyl 10 mg 01/03/25 01:31
Bisacodyl 10 Mg Rectal Suppository RECTAL 01/31/25 01:30
[id number] PRN
constipation
Diphenhydramine HCl 25 mg 01/03/25 03:56
Diphenhydramine 50 Mg/Ml 1 Ml Vial IV 01/31/25 03:55
Q4HPRN PRN
headache
Labetalol HCl 10 mg 01/03/25 03:58
Labetalol Hcl 5 Mg/1 Ml (20 Mg/4 Ml) Injection IV 01/31/25 03:56
Q4HPRN PRN
HTN
Losartan Potassium 25 mg 01/03/25 08:00
Losartan 25 Mg Tablet PO 01/31/25 07:59
DAILY KAILA
Metoprolol Tartrate 75 mg 01/03/25 08:00
Metoprolol 50 Mg Regular Release Tablet PO 01/31/25 07:59
BID KAILA
Polyethylene Glycol 17 grams 01/03/25 01:31
Polyethylene Glycol Powder 17 Grams Packet PO 01/31/25 01:30
DAILYPRN PRN
constipation
Prochlorperazine Edisylate 10 mg 01/03/25 01:31 01/03/25 01:56
Prochlorperazine 10 Mg/2 Ml Vial IV 01/31/25 01:30 10 mg
Q6HPRN PRN Administration
n/v
Senna/Docusate Sodium 1 tablet 01/03/25 01:31
Docusate W/Senna (Cristin-Colace) Tablet PO 01/31/25 01:30
BIDPRN PRN
constipation
Sodium Chloride 0 flush 01/03/25 02:00
Sodium Chloride 0.9% (Flush) Syringe IV 01/31/25 01:59
PER PROTOCOL KAILA
Home Medications
�Medication �Instructions �Recorded
albuterol sulfate 90 mcg/actuation 2 puff inhalation PRN PRN sob 06/01/14
aerosol inhaler (Ventolin HFA)
cholecalciferol (vitamin D3) 50 2,000 unit PO DAILY Supplement 10/01/19
mcg (2,000 unit) tablet
fluticasone propionate 230 2 puff inhalation R BID 10/02/19
mcg-salmeterol 21 mcg/actuation Lung/breathing issues
HFA inhaler (Advair HFA)
aspirin 81 mg chewable tablet 81 mg PO DAILY 07/12/20
atorvastatin 40 mg tablet 40 mg PO QPM #30 tabs 07/12/20
cyanocobalamin (vitamin B-12) 1,000 mcg PO DAILY 10/13/21
1,000 mcg tablet
metoprolol tartrate 50 mg tablet 75 mg PO BID 10/13/21
(Lopressor)
Vital Signs and Labs
-
Vital Signs and Labs:
Vital Signs
Temp Pulse Resp BP Pulse Ox
36.7 C 54 17 170/68 94
10/12/25 11:04 01/03/25 10:02 01/03/25 06:30 01/03/25 10:02 01/03/25 08:32
Lab Results
01/03/25 06:05
01/03/25 06:05
Sodium 135 mmol/L (135-145) 01/03/25 06:05
Potassium 4.6 mmol/L (3.5-5.1) 01/03/25 06:05
BUN 19 mg/dl (7-17) H 01/03/25 06:05
Glucose 112 mg/dl (70-99) H 01/03/25 06:05
Calcium 9.5 mg/dl (8.4-10.2) 01/03/25 06:05
LDL Cholesterol, Calc 68 mg/dl 01/03/25 06:05
Medications
-
Medications:
Generic Name Dose Route Start Last Admin
Trade Name Freq PRN Reason Stop Dose Admin
Acetaminophen 650 mg 01/03/25 01:31 01/03/25 08:25
Acetaminophen 325 Mg Tablet PO 01/31/25 01:30 650 mg
Q4HPRN PRN Administration
mild pain/CARMONA/temp> 100.4F
Aspirin 81 mg 01/03/25 08:00 01/03/25 08:14
Aspirin 81 Mg Chewable Tablet PO 01/31/25 07:59 81 mg
DAILY KAILA Administration
Atorvastatin Calcium 40 mg 01/03/25 18:00
Atorvastatin (Lipitor) 40 Mg Tablet PO 01/31/25 17:59
QPM KAILA
Bisacodyl 10 mg 01/03/25 01:31
Bisacodyl 10 Mg Rectal Suppository RECTAL 01/31/25 01:30
[id number] PRN
constipation
Diphenhydramine HCl 25 mg 01/03/25 03:56
Diphenhydramine 50 Mg/Ml 1 Ml Vial IV 01/31/25 03:55
Q4HPRN PRN
headache
Labetalol HCl 10 mg 01/03/25 03:58 01/03/25 10:02
Labetalol Hcl 5 Mg/1 Ml (20 Mg/4 Ml) Injection IV 01/31/25 03:56 10 mg
Q4HPRN PRN Administration
HTN
Losartan Potassium 25 mg 01/03/25 08:00 01/03/25 08:15
Losartan 25 Mg Tablet PO 01/31/25 07:59 25 mg
DAILY KAILA Administration
Metoprolol Tartrate 75 mg 01/03/25 08:00 01/03/25 08:15
Metoprolol 50 Mg Regular Release Tablet PO 01/31/25 07:59 75 mg
BID KAILA Administration
Polyethylene Glycol 17 grams 01/03/25 01:31
Polyethylene Glycol Powder 17 Grams Packet PO 01/31/25 01:30
DAILYPRN PRN
constipation
Prochlorperazine Edisylate 10 mg 01/03/25 01:31 01/03/25 08:14
Prochlorperazine 10 Mg/2 Ml Vial IV 01/31/25 01:30 10 mg
Q6HPRN PRN Administration
n/v
Senna/Docusate Sodium 1 tablet 01/03/25 01:31
Docusate W/Senna (Cristin-Colace) Tablet PO 01/31/25 01:30
BIDPRN PRN
constipation
Sodium Chloride 0 flush 01/03/25 02:00
Sodium Chloride 0.9% (Flush) Syringe IV 01/31/25 01:59
PER PROTOCOL KAILA
Home Medications
-
Home Medications
albuterol sulfate 90 mcg/actuation aerosol inhaler (Ventolin HFA) 2 puff inhalation PRN PRN sob 06/01/14
cholecalciferol (vitamin D3) 50 mcg (2,000 unit) tablet 2,000 unit PO DAILY Supplement 10/01/19
fluticasone propionate 230 mcg-salmeterol 21 mcg/actuation HFA inhaler (Advair HFA) 2 puff inhalation R BID Lung/breathing issues 10/02/19
aspirin 81 mg chewable tablet 81 mg PO DAILY 07/12/20
atorvastatin 40 mg tablet 40 mg PO QPM #30 tabs 07/12/20
cyanocobalamin (vitamin B-12) 1,000 mcg tablet 1,000 mcg PO DAILY 10/13/21
metoprolol tartrate 50 mg tablet (Lopressor) 75 mg PO BID 10/13/21
[2025-01-03] MEDS: LOW STRENGTH ASPIRIN 81 MG PO (08:14)
[2025-01-03] MEDS: LOPRESSOR 75 MG PO (08:15)
--- NOTE | 2025-01-03 08:43 | W.CON.NEPH ---
Consultation
-
Date/Time Consultation Requested: 01/03/2025 8 AM
Date/Time Consultation Performed: 01/03/2025 8 AM
Requesting Provider: Dr. Everett
Performing Provider: Dr. Mantilla
Reason for Consultation: Hypertensive emergency
Medical History
-
Chief Complaint: Hypertensive emergency
History of Present Illness:
This is an 79-year-old female with history of hypertension currently treated with only mild therapy regimen. She reports multiple intolerances to other drugs including amlodipine and diltiazem which caused rapid heart rate, hydralazine which caused
multiple upper respiratory symptoms and lisinopril for which she does not recall what her reaction was. She also reports that the lisinopril was given IV when it caused her issues. On occasion she has issues with hypertensive urgency or emergency
with blood pressures easily in the 200 systolic range requiring hospitalization. The last time this occurred was in 2021.
She was admitted this time because of severe left-sided headache which was persistent. She also reports vision changes with blurry vision. There may have been some association with her typical migraine aura as well. However this was then
associate also with nausea and vomiting and because of the severity she came to the emergency room her blood pressure was noted to be 219/71. She was treated with intravenous antihypertensives and sent to the ICU. Her blood pressures have resolved
overnight though she still has some blurry vision as well as difficulty with concentration.
Past Medical History
Hypertension, hyperlipidemia, stroke, vertigo, asthma, hysterectomy, abdominal mesh, bladder sling, atypical migraine, atypical migraine
Social History
Tobacco: Non-Smoker
Alcohol: None
Family History
Family History: Not Pertinent
Allergies / Home Medications
Allergy/AdvReac Type Severity Reaction Status Date / Time
amlodipine Allergy pounding Verified 01/02/25 20:44
heart
ampicillin Allergy Rash Verified 01/02/25 20:44
cat dander Allergy sneezing,coughing, Verified 01/02/25 20:44
asthma
codeine Allergy Vomiting Verified 01/02/25 20:44
diltiazem Allergy pt reports Verified 01/02/25 20:44
pounding
heart
latex Allergy Swelling Verified 01/02/25 20:44
pollen extracts Allergy SOB, Verified 01/02/25 20:44
coughing,
sneezing,
asthma
NARESH Inhibitors AdvReac Intermediate cough Verified 01/03/25 03:39
hydralazine AdvReac Intermediate per Verified 01/03/25 03:39
records-pounding
heart,CARMONA,
stuffy head
�Medication �Instructions �Recorded �Confirmed �Type
albuterol sulfate 90 mcg/actuation 2 puff inhalation PRN PRN sob 06/01/14 10/13/21 History
aerosol inhaler (Ventolin HFA)
cholecalciferol (vitamin D3) 50 2,000 unit PO DAILY Supplement 10/01/19 01/02/25 History
mcg (2,000 unit) tablet
fluticasone propionate 230 2 puff inhalation R BID 10/02/19 01/02/25 History
mcg-salmeterol 21 mcg/actuation Lung/breathing issues
HFA inhaler (Advair HFA)
aspirin 81 mg chewable tablet 81 mg PO DAILY 07/12/20 01/02/25 Rx
atorvastatin 40 mg tablet 40 mg PO QPM #30 tabs 07/12/20 01/02/25 Rx
cyanocobalamin (vitamin B-12) 1,000 mcg PO DAILY 10/13/21 01/02/25 History
1,000 mcg tablet
metoprolol tartrate 50 mg tablet 75 mg PO BID 10/13/21 01/02/25 History
(Lopressor)
Review of Systems
-
As above
All other systems: Negative unless noted
Physical Exam
Vital Signs
Vital Signs
Temp Pulse Resp BP Pulse Ox
98.8 F 67 17 137/65 94
01/03/25 07:03 01/03/25 08:15 01/03/25 06:30 01/03/25 08:15 01/03/25 08:32
Lab Results
WBC 10.7 10^3/uL (4.8-10.8) 01/03/25 06:05
RBC 4.01 10^6/uL (4.20-5.40) L 01/03/25 06:05
Hgb 12.0 g/dL (12.0-16.0) 01/03/25 06:05
Hct 35.2 % (37.0-47.0) L 01/03/25 06:05
Plt Count 277 10^3/uL (130-400) 01/03/25 06:05
Sodium 135 mmol/L (135-145) 01/03/25 06:05
Potassium 4.6 mmol/L (3.5-5.1) 01/03/25 06:05
Chloride 106 mmol/L (98-107) 01/03/25 06:05
Carbon Dioxide 24 mmol/L (22-30) 01/03/25 06:05
BUN 19 mg/dl (7-17) H 01/03/25 06:05
Creatinine 0.9 mg/dL (0.6-1.0) 01/03/25 06:05
eGFR > 60.00 01/03/25 06:05
Glucose 112 mg/dl (70-99) H 01/03/25 06:05
Calcium 9.5 mg/dl (8.4-10.2) 01/03/25 06:05
Albumin 4.1 g/dl (3.5-5.0) 01/02/25 21:21
CT abdomen pelvis 11/28/2017
Impression:
Evidence of enterovesical fistula. Possible cystocele.
Status-post hysterectomy.
Extensive sigmoid diverticulosis.
No suspicious fluid collection or inflammatory fat stranding.
Large diverticulum of the third portion of the duodenum.
Moderate-sized hiatal hernia.
Physical Exam
Patient is awake alert oriented and in no distress. Mood and affect were pleasant, insight and judgment were good. Pupils are equal round and reactive to light, extraocular movements are intact, sclera were anicteric. Hearing was normal, ears and
nose are intact. Oropharynx was clear. Neck was supple with trachea midline and no thyromegaly. Heart was regular rate and rhythm without rubs. Lower extremities without edema. Lungs were clear to auscultation bilaterally and with normal
excursion. Abdomen was soft, nontender, with normal active bowel sounds, and no hepatosplenomegaly. Skin was without rash and with normal turgor.
Data Reviewed
-
CT Scan: Report Reviewed by me (Head CT 01/02/2025 no acute disease)
Labs: Labs Reviewed by me
Old Records: Reviewed (Plasma metanephrines 2019 negative)
Assessment/Plan
-
Assessment:
Hypertensive Emergency
Vision change
Hyperlipidemia
GERD
Plan:
now on losartan and metoprolol
BP controlled
would tolerate SBP 140s
check 24 hr urine meta/catech
follow BMP
--- NOTE | 2025-01-03 08:51 | PTCARENOTE ---
Received pt @ change of shift. Pt. assisted into BR for AM hygiene then OOB to chair; tolerating activity. AAOx3, reports 'brain fog,' but no confusion; report mild h/a in 'eyes,' and also reports midline visual aura in both eyes (improved from
yesterday but symptom remains.) SB-SR on monitor. SpO2 94% on RA. +BS, abd soft/nt. Reports int nausea. Cont b/b. Skin c/d/i. #20 R AC patent, dressing c/d/i. Admin PRN IV Compazine and PRN PO Tylenol for h/a and nausea- see MAY. Pt.
instructed on how to report care concerns and call chen w in reach.
--- NOTE | 2025-01-03 10:30 | PTCARENOTE ---
24H urine initiated per orders @ this time; canister placed on ice.
--- NOTE | 2025-01-03 12:15 | PTCARENOTE ---
No NIH/neurocheck per neuro; cont w current care plan.
--- NOTE | 2025-01-03 12:15 | PTCARENOTE ---
Addendum entered by Farzaneh Lundy RN 01/03/25 12:45:
neuro to bedside aware of SBP and wanted intervention; Dr. Olson notified and further orders received- see MAY.
Original Note:
pt. reassessed, reports h/a improving but remains w int nausea and b/l visual aura. Neuro, Dr. Salcedo, updated on pt. assessment/inquiry of plan of care; awaiting to bedside. SBP's elevated into 170-180's despite AM PO medical assembly and IV prn- see
MAY; not due for prn @ this time. Dr. Olson notified, plan to reassess in 1H and report back. Pt.'s son @ bedside. Call siddiqui remains w in reach.
[2025-01-03] MEDS: TRANDATE 5 MG IV (12:40)
--- NOTE | 2025-01-03 13:15 | W.PN.HOSP.TC ---
Today's Communication/Plan
-
see outlined plan below
Assessment / Plan
Assessment / Plan
Assessment:
Hypertension urgency/headache
- Head CT with no acute intracranial abnormality
- Nephrology following
- continue Losartan/BB. Noted intolerances to hydralazine, amlodipine, diltiazem, lisinopril
- IV labetalol as needed
- secondary HTN workoup per Renal
- Compazine as needed
- Neurology consulted; MRI brain
Acute kidney injury
- Creatinine 1.1
- Continue to monitor
Hyperlipidemia
- continue Lipitor
GERD
- continue Protonix
DVT ppx: SC Heparin
Code: Full
Anticipated Discharge: 24 - 48 hours
Subjective/Interval History
-
Date of Service: January 03, 2025
resting comfortably
headache mild at present
Objective Data
-
Labs:
Laboratory Results
01/03/25
06:05
WBC 10.7
Hgb 12.0
Hct 35.2 L
Plt Count 277
Sodium 135
Potassium 4.6
Chloride 106
Carbon Dioxide 24
BUN 19 H
Creatinine 0.9
Glucose 112 H
Calcium 9.5
Vital Signs:
Vital Signs
Temp Pulse Resp BP Pulse Ox
98.1 F 53 17 175/78 94
01/03/25 11:04 01/03/25 12:40 01/03/25 06:30 01/03/25 12:40 01/03/25 08:32
Physical Exam
-
General: No Apparent Distress
HEENT: Normocephalic and Atraumatic
Respiratory: Negative Wheezes
Cardiac: Regular Rhythm and S1/S2
GI: Soft
Musculoskeletal: No Edema
Neuro: AO x 3
Psych: Calm
Data Reviewed
-
Total Time Spent with Patient (in minutes): 42
Labs: Labs Reviewed by me
[2025-01-03 13:36] LABS: Magnesium 1.8 mg/dl (1.6-2.3)
--- NOTE | 2025-01-03 14:37 | PTCARENOTE ---
Report given to oncoming RN; no further needs from this RN.
[2025-01-03 14:39] LABS: C-Reactive Protein < 5.00 mg/L (0.0-10.00)
--- NOTE | 2025-01-03 14:55 | PTCARENOTE ---
Assumed care of pt after transfer report received from Taylor Lundy RN. Pt resting quietly in bed. Reports frontal headache 3/10 w/ 'broken glass' visual disturbance in both eyes that she states is 'less than when I came in'. Pt continues to report
nausea. Tolerating sips of water. Denies any additional symptoms. Tylenol 650mg PO given at pt's request. Pt's son arrived to visit. 24hr collection continues. Physical assessment completed as documented. TT to Dr Olson w/ update on SBP 200's w/ HR
low 50's while pt awake and talking. Waiting on new orders. Call chen w/in pt reach. Safe environment maintained.
[2025-01-03] MEDS: CARDENE 200 IV (16:08)
--- NOTE | 2025-01-03 16:10 | PTCARENOTE ---
Cardene gtt started at 1.25mg/hr per order. SBP 196. Pt resting quietly in bed. Rates headache 2/10 and states improved since Tylenol. Denies any new symptoms. Pt instructed to notify staff and wait for assistance prior to getting OOB- pt verbalized
understanding. Call chen w/in pt reach. Son at bedside.
--- NOTE | 2025-01-03 17:48 | CM ---
IA completed with patient. Son lives with her in a 2 story home plus basement with B/B on 2nd and 1/2 bath on 1st, 2 steps to enter. [employer]IO [employer]IENCE [employer] patient was independent in ADL's and ambulation, drives. Has a RW and nebulizer. Does not need to walker to
ambulate. No in-home services. Discharge POC: Anticipate home with no needs.
[2025-01-03] MEDS: LIPITOR 40 MG PO (18:16)
[2025-01-03] MEDS: LOPRESSOR PO (19:47)
--- NOTE | 2025-01-03 19:56 | PTCARENOTE ---
Pt received at 19:00. Pt AOx3, pleasant and cooperative. States that the 'cracked glass vision' is improved slightly. C/O CARMONA (eyes, forehead)-4/10, PRN tylenol given. Sinus droi, mid 50s, palpable pulses. Cardene gtt infusing to maintain SBP
140-160. RA, pulse ox 97%, breath sounds clear t/o. Denies nausea at this time. Safe environment maintained, call siddiqui within reach, pt repositioning self.
[2025-01-04] VITALS (36 sets, daily range): BP systolic 96–180; BP diastolic 50–141; BMI 28.6
[2025-01-04] MEDS: BENADRYL 25 MG IV (04:35)
[2025-01-04] MEDS: COMPAZINE 10 MG IV ×2 (04:36→23:31)
[2025-01-04 05:08] LABS: Hematocrit 38.9 % (37.0-47.0); Hemoglobin 13.4 g/dL (12.0-16.0); Mean Corp Hgb Conc. 34.4 g/dL (33.0-37.0); Mean Corpuscular Volume 87.0 fL (81.0-99.0); Platelet Count 272 10^3/uL (130-400); Red Cell Dist. Width 13.0 % (11.5-14.5)
[2025-01-04 05:35] LABS: Blood Urea Nitrogen 16 mg/dl (7-17); Calcium 10.1 mg/dl (8.4-10.2); Carbon Dioxide 25 mmol/L (22-30); Chloride 105 mmol/L (98-107); Estimated Creatinine Clearance 56 ml/min; Glucose 116 mg/dl (70-99); Potassium 4.2 mmol/L (3.5-5.1); Sodium 136 mmol/L (135-145); eGFR > 60.00
--- NOTE | 2025-01-04 07:36 | W.PN.HOSP.TC ---
Today's Communication/Plan
-
Nifedipine
Stop nicardipine
Brain MRI
Assessment / Plan
Assessment / Plan
Gen-AAOx3, NAD
HEENT-NC, AT, anicteric, clear oral mm
Neck-supple
CV-reg, no M, +S1/S2
Lungs-clear B/L
Abd-soft, NT, ND
Ext-no edema
Musculoskeletal-no cyanosis, clubbing
Skin-warm and dry
Neuro-grossly non-focal
Psych-calm, cooperative
Hypertension urgency/headache
- Head CT with no acute intracranial abnormality
- Nephrology following
- continue Losartan/BB. Will add nifedipine, discontinue nicardipine drip. Patient agreeable.
Discussed with patient that she will need at least 3 blood pressure meds at discharge.
Encouraged diet, exercise, weight loss.
- secondary HTN workoup per Renal
- Compazine as needed
- Neurology consulted; MRI brain
Acute kidney injury -resolved.
Hyperlipidemia
- continue Lipitor
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
History of ocular migraines
Mild intermittent asthma
BPPV
GERD
- continue Protonix
Code: Full
Anticipated Discharge: Within 24 hours
Subjective/Interval History
-
Date of Service: January 04, 2025
Patient seen and examined. Complaining of left-sided headache.
Objective Data
-
Labs:
Laboratory Results
01/04/25
04:49
WBC 6.3
Hgb 13.4
Hct 38.9
Plt Count 272
Sodium 136
Potassium 4.2
Chloride 105
Carbon Dioxide 25
BUN 16
Creatinine 0.8
Glucose 116 H
Calcium 10.1
Vital Signs:
Vital Signs
Temp Pulse Resp BP Pulse Ox
98 F 74 17 170/65 96
01/04/25 07:25 01/04/25 05:30 01/04/25 05:30 01/04/25 05:30 01/03/25 12:25
I&O
01/03/25 01/04/25 01/05/25
06:59 06:59 06:59
Intake Total 720 / 720
Balance 720 / 720
Review of Systems
-
History Source: Patient
All other systems: Reviewed and negative
--- NOTE | 2025-01-04 08:00 | PTCARENOTE ---
Received pt @ change of shift. Pt. assisted into BR for AM hygiene then OOB to chair; tolerating activity. AAOx3, reports 'brain fog,' but no confusion; report mild h/a in 'eyes,' rated 2 and improving. Also reports midline visual aura in both
eyes (remains same from previous assessments. SR on monitor. SpO2 93% on RA. +BS, abd soft/nt. Reports int nausea. Cont b/b. Skin c/d/i. #20 R AC patent, dressing c/d/i. # 22 R FA w cardene gtt- see flow sheet. Pt. instructed on how to report
care concerns and call chen hunter in reach.
--- NOTE | 2025-01-04 08:09 | CON.INTV ---
Consultation
Consultation Request
Date/Time Consultation Requested: 01/03/25; 17:00
Date/Time Consultation Performed: 01/04/15; 8:15am
Reason for Consultation: HTN emergency
Medical History
-
Chief Complaint: HTN urgency
History of Present Illness:
Pt is an 79yo F with a PMH notable for HTN, migraines w aura, prior L occipital CVA (06/2020; on aspirin), a fib (on eliquis), and vertigo who presented 01/02 with L-sided headache, confusion, nausea, and visual distortions, found to have systolic BP
in the 200s.
Per pt, she takes metoprolol 75mg daily at home (25 & 50mg doses) and measures her BP at home. Has a hx of multidrug intolerant HTN (including hydralazine, amlodipine, diltiazem, lisinopril). She recently went on a trip to [place] (~1-2 weeks ago),
during which time she thinks she may have missed some doses of her BP meds. She also notes that on that trip she experienced severe bilateral ROJELIO after her flights that took ~1 week to resolve. Per pt, her ankles were extremely swollen. This has
never happened to her before. On presentation, she had L-sided headache (frontal/temporal) and visual disturbances that looked like 'broken glass.' States that these sx are similar to those that preceded her stroke in 2020. Not similar to her
migraine aura or location. She also had confusion (couldn't remember kid's name), nausea, and an episode of diarrhea prior to this presentation. She has no residual sx from her prior stroke.
On presentation, was found to have systolic BP in 200s. Received Benadryl, Toradol, labetalol, metoprolol in ER. CT head without ICH. EKG with RBBB and sinus rhythm.
On the floors, she received metoprolol and losartan, with nicardipine drip started 01/03 afternoon. Transferred to ICU for nicardipine mgmt.
This am, endorses 2/10 L-sided headache and ongoing blurriness of vision in both eyes. Visual field narrow, needs to move phone around to read a portion of phone screen. In good spirits, states she's feeling a lot better than when she came in. Says
she felt weak when she got OOB to go to chair this am. Denies any CP or SOB. Endorses minor ROJELIO. BP systolic 100, MAP 68.
Past Medical History
Past Medical History: Arrhythmias, CVA, GERD, HTN and Hypercholesterolemia
Social History
Tobacco: Non-smoker
Alcohol: None
Drug: None
Family History
Family History: Reviewed & Not Pertinent
Allergies / Home Medications
Allergies
Allergy/AdvReac Type Severity Reaction Status Date / Time
amlodipine Allergy pounding Verified 01/02/25 20:44
heart
ampicillin Allergy Rash Verified 01/02/25 20:44
cat dander Allergy sneezing,coughing, Verified 01/02/25 20:44
asthma
codeine Allergy Vomiting Verified 01/02/25 20:44
diltiazem Allergy pt reports Verified 01/02/25 20:44
pounding
heart
latex Allergy Swelling Verified 01/02/25 20:44
pollen extracts Allergy SOB, Verified 01/02/25 20:44
coughing,
sneezing,
asthma
NARESH Inhibitors AdvReac Intermediate cough Verified 01/03/25 03:39
hydralazine AdvReac Intermediate per Verified 01/03/25 03:39
records-pounding
heart,CARMONA,
stuffy head
Home Medications
�Medication �Instructions �Recorded �Confirmed �Last Taken �Type
albuterol sulfate 90 mcg/actuation 2 puff inhalation PRN PRN sob 06/01/14 10/13/21 07/10/20 12:00 History
aerosol inhaler (Ventolin HFA)
cholecalciferol (vitamin D3) 50 2,000 unit PO DAILY Supplement 10/01/19 01/02/25 09/27/19 History
mcg (2,000 unit) tablet
fluticasone propionate 230 2 puff inhalation R BID 10/02/19 01/02/25 07/10/20 08:00 History
mcg-salmeterol 21 mcg/actuation Lung/breathing issues
HFA inhaler (Advair HFA)
aspirin 81 mg chewable tablet 81 mg PO DAILY 07/12/20 01/02/25 Unknown Rx
atorvastatin 40 mg tablet 40 mg PO QPM #30 tabs 07/12/20 01/02/25 Unknown Rx
cyanocobalamin (vitamin B-12) 1,000 mcg PO DAILY 10/13/21 01/02/25 Unknown History
1,000 mcg tablet
metoprolol tartrate 50 mg tablet 75 mg PO BID 10/13/21 01/02/25 Unknown History
(Lopressor)
Review of Systems
-
History Source: Patient
Constitutional: Other (weakness)
Respiratory: No Symptoms
Cardiac: No Symptoms
Abdomen/GI: Nausea (improved)
Neuro: Headache and Other (vision blurry)
Vitals / Labs / Diagnostic Testing
Vital Signs
Temp Pulse Resp BP Pulse Ox
98 F 74 17 170/65 96
01/04/25 07:25 01/04/25 05:30 01/04/25 05:30 01/04/25 05:30 01/03/25 12:25
Lab Data
01/04/25 04:49
01/04/25 04:49
Diagnostic Testing:
Physical Exam
-
HEENT: Normocephalic and Anicteric
Cardiovascular: S1/S2, Regular Rhythm and Peripheral Edema (non pitting )
Respiratory: Clear (anteriorly) and Non-Labored Respirations
GI: Soft, Non Distended and Non Tender
Neurology: Awake, Alert and Oriented
Skin: Warm and Dry
General: Comfortable
Assessment
-
Pt is an 79yo F with a PMH notable for HTN, migraines w aura, prior L occipital CVA (06/2020; on aspirin), a fib (on eliquis), and vertigo who presented 01/02 with L-sided headache, confusion, nausea, and visual distortions, found to have systolic BP
in the 200s, transferred to ICU for nicardipine mgmt.
#HTN urgency
#L-sided CARMONA
#Visual disturbances
Patient found to have systolic BP in the 200s on presentation, after likely missed doses of home metoprolol about 1 week prior. Patient also with visual disturbances, blurriness, nausea, severe left-sided frontotemporal headache. Patient takes 75
mg p.o. metoprolol at home daily. History of multidrug intolerance (amlodipine, diltiazem, hydralazine, lisinopril). S/p nicardipine drip from 01/03-01/04.
Today: Systolic BP in the 100s, MAP 68 s/p stopping nicardipine drip in the am. Rest of vitals wnl. BP trended up to 160s systolic after about 1.5 hour s/p nicardipine. Improved left-sided headache (2/10 pain) with persistent blurry vision,
likely secondary to PRES and s/o HTN.
- Continue metoprolol 75 mg po twice daily
- Continue losartan 25 mg po daily
- Start nifedipine 30mg po daily
- Urine w/u pending for secondary HTN
- MRI brain today
- Discharge on updated HTN regimen
- Nephrology following, appreciate recs
- Neurology following, appreciate recs
#Chronic
- History of CVA�continue aspirin
- HLD�continue atorvastatin
- Asthma�continue albuterol as needed
#Global
- DVT ppx: start subq heparin today
- Code: full
- Diet: Cholesterol-lowering diet
- Dispo: out of ICU today if she remains of nicardipine drip
Data Reviewed
-
EKG: Report reviewed by me
CT Scan: Report reviewed by me
Labs: Labs reviewed by me
Critical Care Time (in minutes): 45
Total Time Spent with Patient (in minutes): 10
[2025-01-04] MEDS: COZAAR 25 MG PO (09:45)
[2025-01-04] MEDS: LOW STRENGTH ASPIRIN 81 MG PO (09:45)
[2025-01-04] MEDS: PROCARDIA XL (EXTENDED RELEASE) 30 MG PO (09:45)
[2025-01-04] MEDS: LOPRESSOR 75 MG PO ×2 (09:46→20:27)
--- NOTE | 2025-01-04 11:09 | PTCARENOTE ---
Addendum entered by Farzaneh Lundy RN 01/04/25 12:29:
pt. RN transported via wheelchair on teletypesetter monitor to MRI scan and back to rm 3362; no adverse events on transport. Cardene gtt remains off. Awaiting imaging results.
Original Note:
Cardene gtt off @ 0813- see flow sheet. BP med regimen confirmed during rounds and admin per orders- see flow sheet. New orders received from neuro this AM to initiate NIH and neuro checks. NIH-0 and neuro check w/in normal limits- see flow sheets.
Upon visual testing for NIH; pt. able to complete in full w/out error but reported need to 'look around aura.' Plan for Brain MRI @ 1130. Call siddiqui remains w in reach.
--- NOTE | 2025-01-04 11:31 | W.PN.NEPH.PH ---
Today's Communication / Plan
-
Increase losartan as indicated as next step in titration
Assessment/Plan
-
Assessment:
Hypertensive Emergency
Vision change
Hyperlipidemia
GERD
Plan:
now on losartan and metoprolol/titrate losartan as blood pressure increases off Cardene
Blood pressure is a low Cardene drip discontinue
check 24 hr urine meta/catech
Discussed with hospital medicine
Normal renin and aldosterone levels in 2020
follow BMP
-
-
Date of Service: January 04, 2025
CC / HPI / ROS
-
Chief Complaint:
Hypertensive urgency
History of Present Illness:
Hypertensive urgency requiring Cardene drip discontinued
Review of Systems:
No chest pain or shortness of breath
Labs
-
Labs:
WBC 6.3 10^3/uL (4.8-10.8) 01/04/25 04:49
RBC 4.47 10^6/uL (4.20-5.40) 01/04/25 04:49
Hgb 13.4 g/dL (12.0-16.0) 01/04/25 04:49
Hct 38.9 % (37.0-47.0) 01/04/25 04:49
Plt Count 272 10^3/uL (130-400) 01/04/25 04:49
Sodium 136 mmol/L (135-145) 01/04/25 04:49
Potassium 4.2 mmol/L (3.5-5.1) 01/04/25 04:49
Chloride 105 mmol/L (98-107) 01/04/25 04:49
Carbon Dioxide 25 mmol/L (22-30) 01/04/25 04:49
BUN 16 mg/dl (7-17) 01/04/25 04:49
Creatinine 0.8 mg/dL (0.6-1.0) 01/04/25 04:49
eGFR > 60.00 01/04/25 04:49
Glucose 116 mg/dl (70-99) H 01/04/25 04:49
Calcium 10.1 mg/dl (8.4-10.2) 01/04/25 04:49
Albumin 4.1 g/dl (3.5-5.0) 01/02/25 21:21
Physical Exam
-
Vital Signs:
Vital Signs
Temp Pulse Resp BP Pulse Ox
98.3 F 76 20 167/90 93
01/04/25 11:14 01/04/25 11:00 01/04/25 11:00 01/04/25 11:00 01/04/25 08:51
Cardiovascular:: Regular rate and rhythm
Respiratory:: Bilateral: CTA
Lung Excursion:: Normal
Abdomen:: Nontender and Soft
Bowel Sounds:: Normal
Extremity Edema:: None: Bilateral:
Cuello Catheter: No
[2025-01-04 12:11] LABS: Glycohemoglobin (HgbA1c) 5.6 % (4.0-5.6)
--- NOTE | 2025-01-04 13:06 | W.PN.NEURO.1 ---
Addendum entered and electronically signed by Daryn Amaya MD 01/04/25 20:48:
I have discussed the patient with the nurse practitioner Antonia Miller and I agree with her assessment and plan. I have also seen and examined the patient today. The patient is a 79 years old female who presented with headache and right sided
visual disturbance. Her blood pressure was 229/106 on arrival.
The MRI of the brain showed an acute infarct in the left occipital lobe.
The plan is to keep the patient on the stroke pathway. The patient is going to be on aspirin and Plavix. The patient was on aspirin at home and the plan is to continue both aspirin and Plavix.
On neurologic examination the patient is alert and oriented x 3, speech is clear and there is no gross focal weakness. On visual field examination the patient appears to have a partial right homonymous hemianopsia.
MRI of the brain shows an acute infarct in the left occipital lobe.
The echocardiogram showed an ejection fraction of 55 to 60% with mild mitral regurgitation.
Follow-up with cardiology.
The etiology of stroke is likely to be embolic. Will get Holter monitor as an outpatient. The patient for now will be on aspirin and Plavix along with atorvastatin. She will also follow-up with cardiology.
Original Note:
Documented by User: Antonia Miller NP 01/04/25 16:01
Today's Communication / Plan
-
.
Neuro Assessment/Plan
Assessment
This is an 79-year-old woman who presented to [facility] on 01/02/2025 with headache and right-sided visual disturbance. Blood pressure was 229/106 on arrival.
-CT head wo contrast 01/02/25�no acute abnormalities, moderate atrophy.
-MRI brain 01/04/25: Acute infarct in the occipital lobe.
-CTA head/neck 01/04/25: pending.
I. Acute left occipital ischemic stroke; etiology is concerning for a cardioembolic source given recurrent stroke in a similar area as prior infarcts.
II. Hypertensive emergency
III. History of left [employer]RE[employer]ILDING [employer]OR[employer] stroke (2020) of unclear etiology
IV. Migraine with aura
IV. Distal symmetric large fiber polyneuropathy
Plan
-CTA head/neck pending.
-Continue aspirin 81mg daily. Initiate clopidogrel 75mg daily for 21 days. Consideration for changing home aspirin to clopidogrel as this event occurred on aspirin. Checking aspirin efficacy testing.
-Goal normotension.
-Needs Holter monitor as an outpatient, if this is normal would recommend ILR placement.
-LDL goal <70. LDL is 68. Continue home atorvastatin 40mg daily as LDL is at goal.
-Goal normoglycemia, hbA1c is 5.6.
-NIHSS and neurological checks per unit guidelines.
-Provide patient with a stroke education packet.
-DVT prophylaxis.
-Follow-up with Neurology as an outapatient.
Subjective/Objective
Subjective Data
Date of Service: January 04, 2025
No acute events overnight. Patient still endorses a mild visual disturbance on the right side.
Objective Data
Vital Signs
Temp Pulse Resp BP Pulse Ox
98.3 F 70 17 122/65 94
01/04/25 11:14 01/04/25 13:00 01/04/25 13:00 01/04/25 13:00 01/04/25 12:21
Lab Results
01/04/25 04:49
01/04/25 04:49
Sodium 136 mmol/L (135-145) 01/04/25 04:49
Potassium 4.2 mmol/L (3.5-5.1) 01/04/25 04:49
BUN 16 mg/dl (7-17) 01/04/25 04:49
Glucose 116 mg/dl (70-99) H 01/04/25 04:49
Calcium 10.1 mg/dl (8.4-10.2) 01/04/25 04:49
LDL Cholesterol, Calc 68 mg/dl 01/03/25 06:05
Whole Bld Vitamin B1 Cancelled 01/03/25 12:50
Patient Allergies
amlodipine Allergy (Verified 01/02/25 20:44)
pounding heart
ampicillin Allergy (Verified 01/02/25 20:44)
Rash
cat dander Allergy (Verified 01/02/25 20:44)
sneezing,coughing, asthma
codeine Allergy (Verified 01/02/25 20:44)
Vomiting
diltiazem Allergy (Verified 01/02/25 20:44)
pt reports pounding heart
latex Allergy (Verified 01/02/25 20:44)
Swelling
pollen extracts Allergy (Verified 01/02/25 20:44)
SOB, coughing, sneezing, asthma
NARESH Inhibitors Adverse Reaction (Intermediate, Verified 01/03/25 03:39)
cough
hydralazine Adverse Reaction (Intermediate, Verified 01/03/25 03:39)
per records-pounding heart,CARMONA, stuffy head
LDL Level: <70, continue statin
Review of Systems
-
History Source: Patient
EENT: Blurry Vision and Decreased Vision; Negative Swallowing Difficulty
Respiratory: Negative Cough or Trouble Breathing
Cardiac: Negative Chest Pain or Palpitations
Neuro: Negative Dizzy, Headache, Weakness, Numbness, Ataxia, Tremors or Speech Problem
Physical Exam
-
General: Well Developed, Well Nourished and No Apparent Distress
Eyes: No Ptosis and PERRLA
HEENT: Normocephalic and Atraumatic
Neck: Full Range of Motion
GI: Non-distended
Extremities: No Clubbing, No Cyanosis and No Edema
Psych: Unremarkable
Extended Neurological Exam
Mood & Affect: Mood Unremarkable and Affect Unremarkable
Attention Span & Concentration: Awake, Alert, Interactive and No Difficulty with 2 Step Request
Memory: Unremarkable and Able to Recall
Tremor: Hand Tremor Absent and Head Tremor Absent
Involuntary Movement: None
Speech: Quality Unremarkable, Quantity Unremarkable and Rate of Production Unremarkable
Cranial Nerve II: Left Eye: Pupillary Reactivity Unremarkable, Pupillary Size Unremarkable and Visual Bauer Reduced (partial right field cut)
Cranial Nerve II: Right Eye: Pupillary Reactivity Unremarkable, Pupillary Size Unremarkable and Visual Bauer Reduced (partial right field cut)
Cranial Nerves III, IV, : Extraocular Movement: Extraocular Movement Full in all Directions
Cranial Nerve V: Facial Sensation: Intact to Light Touch
Cranial Nerve VII: Facial Symmetry: Normal Facial Symmetry
Cranial Nerve VIII: Hearing: Unremarkable Hearing to Normal Conversational Volume
Cranial Nerves IX, X: Palate Movement: Palate Elevation Symmetric
Cranial Nerve XI: Shoulder Shrug: Unremarkable
Cranial Nerve XII: Tongue Protusion: Midline
Muscle Strength, Overall: Full Throughout
Pronator Drift: No Drift in Upper Extremities and No Drift in Lower Extremities
Touch Sensation: Double Simultaneous Stimulation Unremarkable
Coordination: Uosojk-amlb-mnbdjn Testing Unremarkable
Modified Ghislaine Score (MRS)
-
Modified Mckinley Scale (mRS): No significant disability. Able to carry out usual activities.
Score: 1
Data Reviewed
-
CT-A: Pending
CT Head: Report Reviewed and Image Reviewed
MRI Head: Report Reviewed and Image Reviewed
Carotid Ultrasound: Report Reviewed
Labs: Report Reviewed
Lipid Profile: Report Reviewed
HgbA1C: Report Reviewed
Reviewed with: Physician and Patient
Medications
-
Active Medications
Generic Name Dose Route Start Last Admin
Trade Name Freq PRN Reason Stop Dose Admin
Acetaminophen 650 mg 01/03/25 01:31 01/03/25 18:50
Acetaminophen 325 Mg Tablet PO 01/31/25 01:30 650 mg
Q4HPRN PRN Administration
mild pain/CARMONA/temp> 100.4F
Aspirin 81 mg 01/03/25 08:00 01/04/25 09:45
Aspirin 81 Mg Chewable Tablet PO 01/31/25 07:59 81 mg
DAILY KAILA Administration
Atorvastatin Calcium 40 mg 01/03/25 18:00 01/03/25 18:16
Atorvastatin (Lipitor) 40 Mg Tablet PO 01/31/25 17:59 40 mg
QPM KAILA Administration
Bisacodyl 10 mg 01/03/25 01:31
Bisacodyl 10 Mg Rectal Suppository RECTAL 01/31/25 01:30
[id number] PRN
constipation
Diphenhydramine HCl 25 mg 01/03/25 03:56 01/04/25 04:35
Diphenhydramine 50 Mg/Ml 1 Ml Vial IV 01/31/25 03:55 25 mg
Q4HPRN PRN Administration
headache
Heparin Sodium 5,000 units 01/04/25 16:00
Heparin 5,000 Units/Ml 1 Ml Vial SC 02/01/25 15:59
Q8 KAILA
Losartan Potassium 25 mg 01/03/25 08:00 01/04/25 09:45
Losartan 25 Mg Tablet PO 01/31/25 07:59 25 mg
DAILY KAILA Administration
Metoprolol Tartrate 75 mg 01/03/25 08:00 01/04/25 09:46
Metoprolol 50 Mg Regular Release Tablet PO 01/31/25 07:59 75 mg
BID KAILA Administration
Nifedipine 30 mg 01/04/25 08:00 01/04/25 09:45
Nifedipine 30 Mg Extended Release Tablet PO 02/01/25 07:59 30 mg
DAILY KAILA Administration
Polyethylene Glycol 17 grams 01/03/25 01:31
Polyethylene Glycol Powder 17 Grams Packet PO 01/31/25 01:30
DAILYPRN PRN
constipation
Prochlorperazine Edisylate 10 mg 01/03/25 01:31 01/04/25 04:36
Prochlorperazine 10 Mg/2 Ml Vial IV 01/31/25 01:30 10 mg
Q6HPRN PRN Administration
n/v
Fluticasone/Salmeterol 2 puff 01/04/25 20:00
Advair Hfa 230/21 Inhaler INH 02/01/25 19:59
R BID KAILA
Senna/Docusate Sodium 1 tablet 01/03/25 01:31
Docusate W/Senna (Cristin-Colace) Tablet PO 01/31/25 01:30
BIDPRN PRN
constipation
Sodium Chloride 0 flush 01/03/25 02:00
Sodium Chloride 0.9% (Flush) Syringe IV 01/31/25 01:59
PER PROTOCOL KAILA
Home Medications
�Medication �Instructions �Recorded
albuterol sulfate 90 mcg/actuation 2 puff inhalation PRN PRN sob 06/01/14
aerosol inhaler (Ventolin HFA)
cholecalciferol (vitamin D3) 50 2,000 unit PO DAILY Supplement 10/01/19
mcg (2,000 unit) tablet
fluticasone propionate 230 2 puff inhalation R BID 10/02/19
mcg-salmeterol 21 mcg/actuation Lung/breathing issues
HFA inhaler (Advair HFA)
aspirin 81 mg chewable tablet 81 mg PO DAILY 07/12/20
atorvastatin 40 mg tablet 40 mg PO QPM #30 tabs 07/12/20
cyanocobalamin (vitamin B-12) 1,000 mcg PO DAILY Supplement 10/13/21
1,000 mcg tablet
metoprolol tartrate 50 mg tablet 75 mg PO BID Blood Pressure 10/13/21
(Lopressor)

Documented by User: Daryn Amaya MD 01/04/25 20:32
Modified Ghislaine Score (MRS)
-
Score: 1
--- NOTE | 2025-01-04 14:42 | CM ---
CM reviewed pt with nursing- remains independent in room
CM will continue to follow for dc planning
Discharge Disposition- anticipate home no needs
[2025-01-04] MEDS: PLAVIX 75 MG PO (15:30)
[2025-01-04] MEDS: HEPARIN 5000 UNITS SC (15:30)
--- NOTE | 2025-01-04 15:55 | PTCARENOTE ---
pt.'s MRI results w acute cva; results explained to pt. @ bedside by Neurology. Process Control Board Operator, Dr. Kelly, made aware. Further orders received. ECHO and carotid US completed @ bedside. Pt. transported down to CT scan and back to rm 3362 w/out
adverse events for CTA; awaiting results. Admin 1st dose plavix- see MAY. Call chen w in reach.
[2025-01-04 16:51] LABS: Hematocrit 41.1 % (37.0-47.0); Hemoglobin 14.3 g/dL (12.0-16.0); Mean Corp Hgb Conc. 34.8 g/dL (33.0-37.0); Mean Corpuscular Volume 88.4 fL (81.0-99.0); Platelet Count 288 10^3/uL (130-400); Red Cell Dist. Width 12.8 % (11.5-14.5)
[2025-01-04 17:03] LABS: APTT 26.8 Sec (23.4-35.0)
[2025-01-04] MEDS: HEPARIN 25000 UNITS/250 ML IV (17:04)
[2025-01-04] MEDS: LIPITOR 40 MG PO (17:08)
[2025-01-04] MEDS: TYLENOL 650 MG PO (17:08)
--- NOTE | 2025-01-04 18:28 | PTCARENOTE ---
s/p CT imaging results new PE found; results relayed to MD team. Further orders received. Blood work drawn and sent to lab; heparin gtt initiated per orders- see flow sheet.
[2025-01-04] MEDS: TRANDATE 10 MG IV (18:37)
[2025-01-04] MEDS: ADVAIR HFA 230/21 MCG INHALER 2 PUFF INH (21:08)
--- NOTE | 2025-01-04 21:15 | PTCARENOTE ---
Assumed care of pt at 1900. Pt is A/O x4, pleasant and cooperative with care. NIHSS done at start of shift in tandem with offgoing RN, scored 0. See 'Stroke/NeuroCheck,NIHSS' flowsheet on worklist for neuro assessment details. SR 60s-70s on monitor.
Pt denies headache at this time. See nursing shift assessment flowsheet for further assessment details. Pt continues on heparin drip, 1400 units/hr, next PTT due at 2300.
[2025-01-04] MEDS: MELATONIN 5 MG PO (22:29)
[2025-01-04 23:45] LABS: APTT 112.8 Sec (23.4-35.0)
[2025-01-05] VITALS (14 sets, daily range): BP systolic 114–147; BP diastolic 49–95; PULSE 58; BMI 28.0
--- NOTE | 2025-01-05 00:28 | PTCARENOTE ---
Physical assessment and neuro assessment unchanged. Pt able to have BM on BSC (standby assistance). Reported nausea once getting back into bed, medicated with PRN Compazine, see EMAR. Pt requesting something to help her sleep, Melatonin
ordered/administered, see EMAR. SB 50s on monitor while asleep, SpO2 96% on RA.
[2025-01-05 05:16] LABS: Hematocrit 38.1 % (37.0-47.0); Hemoglobin 12.6 g/dL (12.0-16.0); Mean Corp Hgb Conc. 33.1 g/dL (33.0-37.0); Mean Corpuscular Volume 91.6 fL (81.0-99.0); Platelet Count 294 10^3/uL (130-400); Red Cell Dist. Width 12.8 % (11.5-14.5)
[2025-01-05 05:28] LABS: APTT 131.0 Sec (23.4-35.0)
--- NOTE | 2025-01-05 05:40 | PTCARENOTE ---
0400 assessment unchanged, neuro assessment also unchanged. Remains on heparin drip. SR 60s on monitor.
[2025-01-05] MEDS: COMPAZINE 10 MG IV (06:02)
[2025-01-05 06:37] LABS: Blood Urea Nitrogen 16 mg/dl (7-17); Calcium 10.1 mg/dl (8.4-10.2); Carbon Dioxide 23 mmol/L (22-30); Chloride 106 mmol/L (98-107); Estimated Creatinine Clearance 49 ml/min; Glucose 119 mg/dl (70-99); Magnesium 2.0 mg/dl (1.6-2.3); Potassium 4.2 mmol/L (3.5-5.1); Sodium 136 mmol/L (135-145); eGFR > 60.00
[2025-01-05 07:03] LABS: VerifyNow Aspirin 453 ARU
--- NOTE | 2025-01-05 07:15 | PTCARENOTE ---
Pt rec'd in report from offgoing RN, NIHSS remains 0, pt aox3 with c/o mild (3/10) frontal headache pain, medicated with PRN Tylenol with +effect. Pt with hep gtt infusing as ordered-see worklist. Plan discussed with care team, orders rec'd and
reviewed with patient, questions answered. Per orders, hep gtt dc'd, Eliquis ordered, Plavix dc'd. Pt downgraded to telemetry, portable monitor applied, pt ambulating in room PRN, oral care, hygeine care, toileting performed [facility] standby assist. Pt
working with PT/OT ambulating in the hunter, no devices needed. Safe environment maintained.
[2025-01-05] MEDS: ADVAIR HFA 230/21 MCG INHALER 2 PUFF INH (07:17)
--- NOTE | 2025-01-05 08:08 | W.PN.HOSP.TC ---
Today's Communication/Plan
-
Transition to Eliquis
PT/OT
Transfer out of ICU
Assessment / Plan
Assessment / Plan
Gen-AAOx3, NAD
HEENT-NC, AT, anicteric, clear oral mm
Neck-supple
CV-reg, no M, +S1/S2
Lungs-clear B/L
Abd-soft, NT, ND
Ext-no edema
Musculoskeletal-no cyanosis, clubbing
Skin-warm and dry
Neuro-grossly non-focal
Psych-calm, cooperative
Hypertensive emergency -presentation with acute stroke, severe hypertension.
Blood pressure is now controlled, continue losartan, nifedipine, metoprolol.
Prior to admission was on metoprolol alone.
Acute left occipital stroke -neurology input noted. Partial right homonymous hemianopsia. Suspicion for embolic stroke.
She sees Dr. Shiraz Peraza for cardiology. Recommend outpatient cardiac rehabilitation program director on discharge. Spoke with cardiology service to arrange.
Currently on aspirin, Plavix, IV heparin.
Will speak with neurology service about single agent antiplatelet on discharge given need for anticoagulation with Eliquis.
Acute left lower lobe pulmonary embolism -currently on IV heparin, will transition to Eliquis. She does not have symptoms.
Acute kidney injury -resolved.
Hyperlipidemia
- continue Lipitor
LDL 68, HDL 42.
History of stroke, left [employer] -2020.
History of ocular migraines
Mild intermittent asthma
BPPV
GERD
- continue Protonix
Code: Full
PT/OT
Transfer out of ICU.
Anticipated Discharge: Within 24 hours
Subjective/Interval History
-
Date of Service: January 05, 2025
Patient seen and examined. No complaints.
Objective Data
-
Labs:
Laboratory Results
01/04/25 01/05/25
23:19 05:03
WBC 8.4
Hgb 12.6
Hct 38.1
Plt Count 294
APTT 112.8 H 131.0 H
Sodium 136
Potassium 4.2
Chloride 106
Carbon Dioxide 23
BUN 16
Creatinine 0.9
Glucose 119 H
Calcium 10.1
Vital Signs:
Vital Signs
Temp Pulse Resp BP Pulse Ox
97.8 F 83 17 140/56 95
01/05/25 04:10 01/05/25 07:23 01/05/25 07:23 01/05/25 06:00 01/05/25 07:23
I&O
01/04/25 01/05/25 01/06/25
06:59 06:59 06:59
Intake Total 720 / 720 591 / 591
Output Total 350 / 350
Balance 720 / 720 241 / 241
Review of Systems
-
History Source: Patient
All other systems: Reviewed and negative
[2025-01-05] MEDS: TYLENOL 650 MG PO (08:32)
[2025-01-05] MEDS: LOPRESSOR 75 MG PO (08:33)
[2025-01-05] MEDS: PROCARDIA XL (EXTENDED RELEASE) 30 MG PO (08:33)
[2025-01-05] MEDS: LOW STRENGTH ASPIRIN 81 MG PO (08:33)
[2025-01-05] MEDS: COZAAR 25 MG PO (08:33)
[2025-01-05] MEDS: ELIQUIS 10 MG PO (08:33)
--- NOTE | 2025-01-05 08:52 | W.PN.UPDATE ---
Update Note
Progress Note Update
01/05, patient transferred out of ICU.
Computed Tomography Technician service is available as needed. Will sign off
Outpatient follow-up with [facility] pulmonary clinic for pulmonary embolism.
[2025-01-05] MEDS: PLAVIX PO (08:58)
--- NOTE | 2025-01-05 12:07 | W.PN.NEPH.PH ---
Today's Communication / Plan
-
Continue current antihypertensive medication regimen
Assessment/Plan
-
Assessment:
Hypertensive Emergency
Vision change=MRI of the brain showed an acute infarct in the left occipital lobe.
Hyperlipidemia
GERD
Plan:
now on losartan and metoprolol/titrate losartan
Aspirin Plavix for CVA acute
check 24 hr urine meta/catech= completed awaiting results
Normal renin and aldosterone levels in 2020
Blood pressures at goal on current medication
-
-
Date of Service: January 05, 2025
CC / HPI / ROS
-
Chief Complaint:
Hypertensive urgency
History of Present Illness:
Hypertensive urgency requiring Cardene drip discontinued
Review of Systems:
No chest pain or shortness of breath
Labs
-
Labs:
WBC 8.4 10^3/uL (4.8-10.8) 01/05/25 05:03
RBC 4.16 10^6/uL (4.20-5.40) L 01/05/25 05:03
Hgb 12.6 g/dL (12.0-16.0) 01/05/25 05:03
Hct 38.1 % (37.0-47.0) 01/05/25 05:03
Plt Count 294 10^3/uL (130-400) 01/05/25 05:03
Sodium 136 mmol/L (135-145) 01/05/25 05:03
Potassium 4.2 mmol/L (3.5-5.1) 01/05/25 05:03
Chloride 106 mmol/L (98-107) 01/05/25 05:03
Carbon Dioxide 23 mmol/L (22-30) 01/05/25 05:03
BUN 16 mg/dl (7-17) 01/05/25 05:03
Creatinine 0.9 mg/dL (0.6-1.0) 01/05/25 05:03
eGFR > 60.00 01/05/25 05:03
Glucose 119 mg/dl (70-99) H 01/05/25 05:03
Calcium 10.1 mg/dl (8.4-10.2) 01/05/25 05:03
Albumin 4.1 g/dl (3.5-5.0) 01/02/25 21:21
Physical Exam
-
Vital Signs:
Vital Signs
Temp Pulse Resp BP Pulse Ox
97.5 F 71 17 119/59 96
01/05/25 08:00 01/05/25 11:00 01/05/25 09:00 01/05/25 10:05 01/05/25 11:50
Cardiovascular:: Regular rate and rhythm
Respiratory:: Bilateral: CTA
Lung Excursion:: Normal
Abdomen:: Nontender and Soft
Bowel Sounds:: Normal
Extremity Edema:: None: Bilateral:
Cuello Catheter: No
--- NOTE | 2025-01-05 13:12 | W.DS.TRANS ---
DC Summary - [employer]
-
Discharge Instructions:
Discharge Diagnosis/Procedures Hypertensive emergency, acute stroke, acute
pulmonary embolism, acute kidney injury
Diet Low Fat,Low Cholesterol,2 Gram Sodium
Activity As tolerated
Driving Restrictions Not until seen by your Dr
Bathing Restrictions None
Other Services PT,OT
Instructions:
Stand-Alone Forms:
Changes to Home Medications: No
Discharge Medications:
DC Medications w/original date entered in Medical Referral Source
albuterol sulfate 90 mcg/actuation aerosol inhaler (Ventolin HFA) 2 puff inhalation PRN PRN sob 06/01/14
cholecalciferol (vitamin D3) 50 mcg (2,000 unit) tablet 2,000 unit PO DAILY Supplement 10/01/19
fluticasone propionate 230 mcg-salmeterol 21 mcg/actuation HFA inhaler (Advair HFA) 2 puff inhalation R BID Lung/breathing issues 10/02/19
aspirin 81 mg chewable tablet 81 mg PO DAILY 07/12/20
atorvastatin 40 mg tablet 40 mg PO QPM #30 tabs 07/12/20
cyanocobalamin (vitamin B-12) 1,000 mcg tablet 1,000 mcg PO DAILY Supplement 10/13/21
metoprolol tartrate 50 mg tablet (Lopressor) 75 mg PO BID Blood Pressure 10/13/21
apixaban 5 mg (74 tabs) tablets in a dose pack (Songforquis DVT-PE Treat 30D Start) See Rx Instructions PO .COMPLEX #74 ea 01/05/25
losartan 25 mg tablet 25 mg PO DAILY #30 tabs 01/05/25
nifedipine 30 mg tablet,extended release 30 mg PO DAILY #30 tabs 01/05/25
Home Medication Changes
Pending Results: No
--- NOTE | 2025-01-05 14:03 | CM ---
Patient has been medically cleared for discharge to home with script for outpatient physical therapy. Son will transport home.
[2025-01-06 15:51] LABS: 24 Hour Urine Total Volume 1400 mL; Creatinine, Urine 24 Hour 980 mg/d (500-1400); Creatinine, Urine per Volume 70 mg/dL; Dopamine, 24 Hour Urine 141 ug/d (71-485); Dopamine, Urine 101 ug/L; Dopamine/Creatinine Ratio 144 ug/g CRT (0-250); Epinephrine, 24 Hour Urine 3 ug/d (1-14); Epinephrine, Urine 2 ug/L; Epinephrine/Creatinine Ratio 3 ug/g CRT (0-20); Norepinephrine, 24 Hour Urine 42 ug/d (14-120); Norepinephrine, Urine 30 ug/L; Norepinephrine/Creatinine Rat 43 ug/g CRT (0-45); Urine Collection Length 24 hr
[2025-01-07 08:12] LABS: 24 Hour Urine Total Volume 1400 mL; Creatinine, Urine 24 Hour 980 mg/d (500-1400); Creatinine, Urine per Volume 70 mg/dL; Metanephrine, 24 Hour Urine 70 ug/d (36-229); Metanephrine, Urine 50 ug/L; Normetanephrine, 24 Hour Urine 368 ug/d (95-650); Normetanephrine, Urine 263 ug/L; Normetanephrine/Creatinine Rat 376 ug/g CRT (0-400); Urine Collection Length 24 hr
== END 2025-01-05 15:00 | disposition home or self-care (01) | DRG 64 ==
LOC: ICU 23:49
PROVIDERS: Internal Medicine; Nurse Practitioner Primary Care; Registered Nurse; Registered Nurse Critical Care Medicine; ADMITTING PHYSICIAN Internal Medicine; ATTENDING PHYSICIAN Hospitalist; CONSULT PHYSICIAN Psychiatry & Neurology Neurology; CONSULT PHYSICIAN Specialist; EMERGENCY PHYSICIAN Emergency Medicine; FAMILY PHYSICIAN Nurse Practitioner Adult Health; OTHER PHYSICIAN Internal Medicine
DX: I63.532 Cerebral infarction due to unspecified occlusion or stenosis of left posterior cerebral artery (principal); I26.99 Other pulmonary embolism without acute cor pulmonale; I16.1 Hypertensive emergency; N17.9 Acute kidney failure, unspecified; E78.00 Pure hypercholesterolemia, unspecified; G43.109 Migraine with aura, not intractable, without status migrainosus; I10 Essential (primary) hypertension; K21.9 Gastro-esophageal reflux disease without esophagitis; Z79.82 Long term (current) use of aspirin; Z86.73 Personal history of transient ischemic attack (TIA), and cerebral infarction without residual deficits; J45.909 Unspecified asthma, uncomplicated; D64.9 Anemia, unspecified; Z90.710 Acquired absence of both cervix and uterus; Z91.040 Latex allergy status; Z88.5 Allergy status to narcotic agent; Z88.0 Allergy status to penicillin; B02.9 Zoster without complications; Z79.01 Long term (current) use of anticoagulants; Z79.899 Other long term (current) drug therapy; E53.8 Deficiency of other specified B group vitamins; F32.A Depression, unspecified; G62.9 Polyneuropathy, unspecified; I45.10 Unspecified right bundle-branch block; I48.91 Unspecified atrial fibrillation; J32.9 Chronic sinusitis, unspecified; K44.9 Diaphragmatic hernia without obstruction or gangrene; K90.0 Celiac disease
CPT/HCPCS: 70450; 70496; 70498; 70551; 80048; 80053; 80061; 81050; 82384; 83036; 83735; 83835; 84443; 84484; 85025; 85027; 85576; 85652; 85730; 86140; 92523; 93005; 93306; 93880; 94640; 96374; 96375; 97162; 97167; 99285; Q9967